=== PATIENT | female | born 1945 | race Caucasian/White ===

== ENCOUNTER → 2016-07-17 | Outpatient (CLI) | payer MEDICARE ==
[2016-07-17 12:22] LABS: Aty Lym Flag Slight; CH 31.5; CHCM 32.8; HCT 46.3 % (34.0-46.0); HDW 2.48; HGB 14.6 gm/dL (11.4-16.0); MCH 30.6 pg (25.0-35.0); MCHC 31.6 g/dL (31.0-37.0); MCV 96.6 fL (80.0-100.0); Mean Platelet Volume 7.1; RBC 4.79 m/uL (3.80-5.40); WBC 10.6 k/uL (3.8-10.6); WBC (Perox) 11.17
[2016-07-17 13:16] LABS: Add Differential Manual Differential
[2016-07-17 13:17] LABS: Manual Review Performed; Nucleated Red Blood Cells 0 /100 WBC (0-0); Total Cells Counted 100
[2016-07-17 13:18] LABS: RBC Morphology Normal
== END | disposition home or self-care (01) ==
LOC: LABPAT 11:26
PROVIDERS: ATTEND Obstetrics & Gynecology
DX: Z01.818 Encounter for other preprocedural examination (principal); I10 Essential (primary) hypertension
CPT/HCPCS: 85025; 93005

== ENCOUNTER 2016-07-25 09:00 | Day surgery (SDC) | payer MEDICARE ==
[2016-07-19 12:03] VITALS: BMI 26.2
[~2016-07-25 09:00] MED LIST: DEXAMETHASONE SOD PHOSPHATE 10 MG/ML 1 ML VIAL IV ONE; HYDROmorphone 1 MG/ML 1 ML SYRINGE IVP PRN; LACTATED RINGERS 1,000 ML IV SCH; LIDOCAINE 1% 20 ML VIAL (10MG/ML) FOR IV START INTRADERMA PRN; MIDAZOLAM 2 MG/2 ML VIAL IV PRN; ONDANSETRON 4 MG/2 ML VIAL IVP ONE; SCOPOLAMINE 1.5MG/72HR PATCH TRANSDERM ONE; ceFAZolin 2 GM in SODIUM CHLORIDE 0.9% 100 ML IVPB ONE
[2016-07-25] MEDS ORDERED: LACTATED RINGERS 1,000 ML IV ONE (09:33)
[2016-07-25] MEDS ORDERED: LIDOCAINE 1% 20 ML VIAL (10MG/ML) FOR IV START INTRADERMA ONE (09:34)
[2016-07-25 09:52] LABS: Glucose,Whole Blood 99 mg/dL (75-99)
[2016-07-25] MEDS ORDERED: PROPOFOL 10 MG/ML 20 ML VIAL IV ONE (10:21)
[2016-07-25] MEDS ORDERED: KETOROLAC 30 MG/ML 1 ML VIAL ONE (10:21)
[2016-07-25] MEDS ORDERED: fentaNYL (PF) 50 MCG/ML 2 ML AMP ONE (10:21)
[2016-07-25] MEDS ORDERED: GLYCOPYRROLATE 0.2 MG/ML 2 ML VIAL ONE (10:21)
[2016-07-25] MEDS ORDERED: LIDOCAINE 1% INJ 10MG/ML (20 ML MDV) ONE (10:21)
[2016-07-25] MEDS ORDERED: MIDAZOLAM 2 MG/2 ML VIAL ONE (10:21)
[2016-07-25 10:53] VITALS: TEMP 96.8
[2016-07-25] MEDS ORDERED: SIMETHICONE 80 MG CHEWABLE PO PRN (11:00)
[2016-07-25] MEDS ORDERED: ONDANSETRON 4 MG/2 ML VIAL IVP PRN (11:00)
[2016-07-25] MEDS ORDERED: METOCLOPRAMIDE 5 MG/ML 2 ML VIAL IVP PRN (11:00)
[2016-07-25] MEDS ORDERED: diphenhydrAMINE 50 MG/ML 1 ML VIAL IVP PRN (11:00)
[2016-07-25] MEDS ORDERED: LACTATED RINGERS 1,000 ML IV SCH (11:00)
[2016-07-25] MEDS ORDERED: Acetaminophen-Codeine 300-30mg TAB PO PRN ×2 (11:00)
--- NOTE | 2016-07-25 11:12 | P.OP ---
Date of Procedure: 07/25/16 Preoperative Diagnosis: 1. Postmenopausal bleeding #2. Cervical stenosis #3. Endometrial fluid Postoperative Diagnosis: Same Procedure(s) Performed: #1. Diagnostic hysteroscopy #2. Dilation and curettage Anesthesia: other (Gen. by face mask) Surgeon: Aly West Estimated Blood Loss (ml): 2 IV fluids (ml): 300 Urine output (ml): 20 Pathology: other (Endometrial curettings) Condition: stable Disposition: PACU Operative Findings: Preoperative pelvic examination demonstrated an atrophic slightly anteverted mobile normal shaped uterus with normal adnexa bilaterally. Intraoperatively, the uterus sounded to 5 cm. Upon initial hysteroscopy, it was unclear whether we were in the uterine cavity. As I backed the scope out towards the cervix and became apparent that expulsive track had been created in the middle of the central portion of the fundus with one of the dilators and that the in vitro cavity was entirely atrophic and benign in appearance. The bilateral tubal ostia were seen. The perforation was only partial and had no ongoing bleeding of any kind. Curettage failed to produce any significant amount of tissue as would be expected from an atrophic endometrium. There is minimal cervical descensus. Description of Procedure: The patient was prepped and draped in usual fashion after general anesthesia was administered by the anesthesiologist. A weighted speculum was placed in the bladder drained of approximately 20 mL of clear [place] urine. The anterior lip of the cervix was grasped with a single-tooth tenaculum and uterus sounded to 5 cm as noted above. Serial dilation was carried out to admit the diagnostic hysteroscope which was placed with the findings as noted above. After discovery of the midline partial perforation, the scope was backed to the cervix at which time it was very clear that the uterine cavity was benign in nature and the bilateral tubal ostia were easily seen. All instrumentation was then removed aside from the tenaculum which was utilized to provide traction for curettage with a small sharp curette and circumferential and thorough fashion onto a Telfa placed in the vagina. Minimal tissue was produced. Allis her mentation was then removed entirely and the procedure terminated. There was no significant ongoing bleeding. Estimated blood loss for the entire case was approximately 2 mL. There were no complications. All sponge, instrument, and needle counts were correct. The patient tolerated the procedure well and proceeded to the recovery room in stable condition.
[2016-07-25 12:29] VITALS: RESP 18
[2016-07-25 12:33] VITALS: BP 112/57; PULSE 57
[2016-07-25 12:37] LABS: Glucose,Whole Blood 115 mg/dL (75-99)
== END 2016-07-25 13:34 | disposition home or self-care (01) ==
LOC: OR 09:00
PROVIDERS: ATTEND Obstetrics & Gynecology
DX: N88.2 Stricture and stenosis of cervix uteri (principal); N95.0 Postmenopausal bleeding; I10 Essential (primary) hypertension; E78.5 Hyperlipidemia, unspecified; E11.9 Type 2 diabetes mellitus without complications; K21.9 Gastro-esophageal reflux disease without esophagitis; Z79.82 Long term (current) use of aspirin; Z79.899 Other long term (current) drug therapy
CPT/HCPCS: 88305; 58558; J2250; J1100; J0690; J2405; J2001; J3010; J1885; J2704

== ENCOUNTER → 2016-10-31 | Outpatient (CLI) | payer MEDICARE ==
--- NOTE | 2016-10-31 17:22 | MR ---
EXAMINATION TYPE: MR lumbar spine wo con DATE OF EXAM: 10/31/2016 4:33 PM COMPARISON: NONE HISTORY: Numbness, Right Hip, X6 WEEKS, Multiplanar, MultiSpin echo imaging of the lumbar spine was performed. L1-L2: Normal disc appearance without desiccation. No herniation, protrusion or disc bulging. No ca nal stenosis is present. Foramina are patent bilaterally. L2-L3: Mild disc desiccation is noted. Mild posterior disc bulge without evidence for herniation or p rotrusion. No canal stenosis is present. Foramina are patent bilaterally. L3-L4: Mild disc desiccation is noted. Mild posterior disc bulge without evidence for herniation or protrusion. No canal stenosis is present. Foramina are patent bilaterally. L4-L5: Mild disc desiccation is noted. Mild posterior disc bulge without evidence for herniation or protrusion. No canal stenosis is present. Foramina are patent bilaterally. L5-S1: Normal disc appearance without desiccation. No herniation, protrusion or disc bulging. No ca nal stenosis is present. Foramina are patent bilaterally. Lumbar segments are intact. No paraspinal masses are identified. Conus medullaris has a normal appe arance. IMPRESSION: 1. Mild degenerative disc disease and disc bulging is noted.
== END | disposition home or self-care (01) ==
LOC: RADMRIMAIN 15:37
PROVIDERS: ATTEND Psychiatry & Neurology Neurology
DX: M51.26 Other intervertebral disc displacement, lumbar region (principal); M51.36 Other intervertebral disc degeneration, lumbar region
CPT/HCPCS: 72148

== ENCOUNTER → 2017-03-21 | Outpatient (CLI) | payer MEDICARE ==
--- NOTE | 2017-03-23 11:02 | MM ---
Reason for exam: screening (asymptomatic). Last mammogram was performed 4 years and 2 months ago. History: Patient is postmenopausal. Family history of breast cancer in mother at age 50. Took estrogen for 10 years. Took progesterone for 10 years. Physical Findings: A clinical breast exam by your physician is recommended on an annual basis and results should be correlated with mammographic findings. MG 3D Screening Mammo W/Cad Bilateral CC and MLO view(s) were taken. Prior study comparison: March 14, 2016, mammogram, performed at [facility]. January 21, 2013, bilateral digital screening mammo w/CAD. January 16, 2012, bilateral digital screening mammo w/CAD. Masses of the upper inner quadrant and upper outer quadrant on the left are unchanged back to 01/11/11. No suspicious abnormality. No significant changes when compared with prior studies. ASSESSMENT: Benign, BI-RAD 2 RECOMMENDATION: Routine screening mammogram of both breasts in 1 year.
== END | disposition home or self-care (01) ==
LOC: RADMAMWWP 13:05
PROVIDERS: ATTEND Family Medicine
DX: Z12.31 Encounter for screening mammogram for malignant neoplasm of breast (principal)
CPT/HCPCS: 77063; G0202

== ENCOUNTER → 2018-08-20 | Outpatient (CLI) | payer MEDICARE ==
--- NOTE | 2018-08-20 17:00 | US ---
EXAMINATION TYPE: US thyroid st tissue head/neck DATE OF EXAM: 08/20/2018 COMPARISON: NONE CLINICAL HISTORY: E04.2 Nontoxic multinodular goiter. Patient states during carotid doppler at doctor s office the tech saw nodules. GLAND SIZE: Right Lobe: 5.0 x 1.3 x 2.9 cm Overall Parenchyma: homogenous Left Lobe: 4.9 x 1.8 x 2.4 cm Overall Parenchyma: heterogeneous Isthmus Thickness: 0.6 cm NODULES RIGHT: # of nodules measured on right: 0 LEFT: # of nodules measured on left: 2 1. 1.8 X 1.6 x 1.9 cm isoechoic solid nodule at the mid pole with well-defined margins. This nodul e is wider than tall and shows intranodular vascularity. Prior size: no previous 2. 1.2 X 0.9 x 1.2 cm isoechoic solid nodule at the lower pole with well-defined margins. This nodu le is wider than tall and shows intranodular vascularity. Prior size: no previous ISTHMUS: # of nodules measured in the isthmus: There is a 0.6 cm nodule within the isthmus. Bilateral neck scanned, no evidence of lymphadenopathy. IMPRESSION: 1. Left lobe thyroid nodules
== END ==
LOC: RADUSWWP 11:19
PROVIDERS: ATTEND Internal Medicine Endocrinology, Diabetes & Metabolism
DX: E04.2 Nontoxic multinodular goiter (principal)
CPT/HCPCS: 76536

== ENCOUNTER → 2018-09-13 | Outpatient (CLI) | payer MEDICARE ==
--- NOTE | 2018-09-16 10:47 | MM ---
Reason for exam: screening (asymptomatic). Last mammogram was performed 1 year and 6 months ago. History: Patient is postmenopausal. Family history of breast cancer in mother at age 50 and breast cancer in sister. Took estrogen for 10 years. Took progesterone for 10 years. Physical Findings: A clinical breast exam by your physician is recommended on an annual basis and results should be correlated with mammographic findings. MG 3D Screening Mammo W/Cad Bilateral CC and MLO view(s) were taken. Prior study comparison: March 21, 2017, bilateral MG 3d screening mammo w/cad. March 14, 2016, mammogram, performed at [facility]. The breast tissue is heterogeneously dense. This may lower the sensitivity of mammography. There is chronic nodularity bilaterally. No significant changes when compared with prior studies. ASSESSMENT: Benign, BI-RAD 2 RECOMMENDATION: Routine screening mammogram of both breasts in 1 year.
== END ==
LOC: RADMAMWWP 11:38
PROVIDERS: ATTEND Family Medicine
DX: Z12.31 Encounter for screening mammogram for malignant neoplasm of breast (principal)
CPT/HCPCS: 77063; 77067

== ENCOUNTER → 2019-12-15 | Outpatient (CLI) | payer MEDICARE ==
--- NOTE | 2019-12-15 15:48 | BD ---
EXAMINATION TYPE: Axial Bone Density DATE OF EXAM: 12/15/2019 COMPARISON: April 05, 2015 CLINICAL HISTORY: Postmenopausal female Height: 60 Weight: 154.4 FRAX RISK QUESTIONS: Alcohol (3 or more units per day): no Family History (Parent hip fracture): no Glucocorticoids (More than 3mos): no (Ex: prednisone, prednisolone, methylprednisolone, dexamethasone, and hydrocortisone). History of Fracture in Adulthood: no Secondary Osteoporosis: 1. Type 1 Diabetes: no 2. Hyperthyroidism: no 3. Menopause before 45: no 4. Malnutrition: no 5. Chronic liver disease: no Rheumatoid Arthritis: no Current Tobacco Use: no RISK FACTORS HISTORY OF: Family History of Osteoporosis: no Active: yes Diet low in dairy products/other sources of calcium: yes Postmenopausal woman: age 49 Lost more than 2 inches in height since high school: no MEDICATIONS: blood pressure, cholesterol meds, Additional History: EXAM MEASUREMENTS: Bone mineral densitometry was performed using the [employer] System. Bone mineral density as measured about the Lumbar spine is: ----- L1-L4(G/cm2): 0.957 T Score Values are as follows: ----- L2: -1.3 ----- L3: -1.4 ----- L4: -2.6 ----- L1-L4: -1.4 Bone mineral density has: increased 0.4 % since study of: 04.05.2015 Bone mineral density about the R hip (g/cm2): 0.740 Bone mineral density about the L hip (g/cm2): 0.750 T Score values are as follows: -----R Neck: -2.1 -----L Neck: -2.1 -----R Total: -1.3 -----L Total: -1.3 Bone mineral density has: decreased -0.8 % since study of: 04.05.2015 IMPRESSION: Osteopenia (T Score between -2.5 and -1) remains present. There remains slightly increased risk of fracture and the patient may be considered for treatment. Re-Screen 2-5 years. NOTE: T-SCORE=SD OF THE YOUNG ADULT MEAN.
--- NOTE | 2019-12-16 08:30 | MM ---
Reason for exam: screening (asymptomatic). Last mammogram was performed 1 year and 3 months ago. History: Patient is postmenopausal. Family history of breast cancer in mother at age 50 and breast cancer in sister. Took estrogen for 10 years. Took progesterone for 10 years. Physical Findings: A clinical breast exam by your physician is recommended on an annual basis and results should be correlated with mammographic findings. MG 3D Screening Mammo W/Cad Bilateral CC and MLO view(s) were taken. Prior study comparison: September 13, 2018, bilateral MG 3d screening mammo w/cad. March 21, 2017, bilateral MG 3d screening mammo w/cad. The breast tissue is heterogeneously dense. This may lower the sensitivity of mammography. There is chronic nodularity in the left breast. No significant changes when compared with prior studies. ASSESSMENT: Benign, BI-RAD 2 RECOMMENDATION: Routine screening mammogram of both breasts in 1 year.
== END | disposition home or self-care (01) ==
LOC: RADMAMWWP 12:38
PROVIDERS: ATTEND Family Medicine
DX: Z12.31 Encounter for screening mammogram for malignant neoplasm of breast (principal); M85.80 Other specified disorders of bone density and structure, unspecified site; Z78.0 Asymptomatic menopausal state
CPT/HCPCS: 77063; 77067; 77080

== ENCOUNTER → 2020-05-04 | Outpatient (CLI) | payer MEDICARE ==
--- NOTE | 2020-05-04 15:38 | US ---
EXAMINATION TYPE: US thyroid st tissue head/neck DATE OF EXAM: 05/04/2020 COMPARISON: NONE CLINICAL HISTORY: E04.2 MULTINODULAR GOITER. f/u, patient said Dr Barahona did biopsy of nodules in office GLAND SIZE: Right Lobe: 5.4 x 1.1 x 1.3 cm Overall Parenchyma: homogenous Left Lobe: 5.1 x 1.5 x 1.9 cm Overall Parenchyma: heterogeneous Isthmus Thickness: 0.6 cm NODULES RIGHT: # of nodules measured on right: 0 LEFT: # of nodules measured on left: 2 1. 1.9 X 1.6 x 2.0 cm solid or almost completely solid, hypoechoic nodule, which is wider than tall , with smooth margins, without echogenic foci. Prior size: 1.7 x 1.6 x 1.4 cm 2. 1.7 X 0.9 x 1.2 cm solid or almost completely solid, hypoechoic nodule, which is wider than tall , with smooth margins, without echogenic foci. Prior size: 1.5 x 0.8 x 1.3 cm ISTHMUS: # of nodules measured in the isthmus: 0 Bilateral neck scanned, no evidence of lymphadenopathy. IMPRESSION: Enlarging left lobe thyroid nodule. 2017 ACR TI-RADS LEVEL: 4 *Highest TI-RADS level nodule reported Recommendations: 1. Fine-needle aspiration of left lobe thyroid nodule
[2020-05-04 18:02] LABS: T4, Free (Free Thyroxine) 1.16 ng/dL (0.78-2.19)
== END | disposition home or self-care (01) ==
LOC: RADUSWWP 14:41
PROVIDERS: ATTEND Internal Medicine Endocrinology, Diabetes & Metabolism
DX: E04.1 Nontoxic single thyroid nodule (principal)
CPT/HCPCS: 76536; 84439; 84443

== ENCOUNTER → 2020-08-10 | Outpatient (CLI) | payer MEDICARE ==
[2020-08-10 13:24] VITALS: BP 108/69; PULSE 70; RESP 18; TEMP 98.3
--- NOTE | 2020-08-10 14:41 | P.HPOB ---
History of Present Illness H&P Date: 08/10/20 Chief Complaint: The patient is here for her routine gynecologic exam. This is a 74-year-old with an LMP of 1994. The patient is here to establish with this office. She previously saw Dr. Salgado more than 8 years ago for her gynecologic exams. The patient states she has noticed a vaginal odor without discharge during the past 2 months. She denies any postmenopausal bleeding and is otherwise without gynecologic complaints. She believes she may have had a pelvic exam 1-2 years ago in her PCPs office. Review of Systems She has gained about 10 pounds over the past year. She denies respiratory, cardiac and G.I. problems. She denies maltreatment or problems with falling. : She has had some urinary leakage despite having a sling procedure done in the past. Past Medical History Past Medical History: Cancer, CVA/TIA, Diabetes Mellitus, Deep Vein Thrombosis (DVT), GERD/Reflux, GI Bleed, Hyperlipidemia, Hypertension Additional Past Medical History / Comment(s): AORTIC ANEURYSM, BEING MONITORED. HX SKIN CA(scalp). 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 TYPE 2 DM, DIET CONTROLLED. HX LT ARM DVT. OVERACTIVE BLADDER, RX HELPS. Osteopenia. 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 History of Any Multi-Drug Resistant Organisms: None Reported Past Surgical History: Bladder Surgery Additional Past Surgical History / Comment(s): CTR LEXI. LT CAROTID ENDARTERECTOMY. Bladder sling procedure. Wrist surgery. Colonoscopy 2019. D&C 2016. Past Anesthesia/Blood Transfusion Reactions: No Reported Reaction Past Psychological History: No Psychological Hx Reported Smoking Status: Former smoker Past Alcohol Use History: None Reported Additional Past Alcohol Use History / Comment(s): Quit smoking in 2010. Past Drug Use History: None Reported Additional History: She has been since 2001 and this is her second marriage. She is retired. - Past Family History Sister(s) Family Medical History: Cancer Additional Family Medical History / Comment(s): Colon cancer. Another sister had breast cancer. Mother Brother(s) Family Medical History: Cancer Brother(s) Family Medical History: Cancer, CVA/TIA Additional Family Medical History / Comment(s): Colon cancer. Mother Family Medical History: Cancer Additional Family Medical History / Comment(s): Uterine cancer. Father Family Medical History: CVA/TIA Medications and Allergies Home Medications Medication Instructions Recorded Confirmed Type Aspirin [Adult Low Dose Aspirin EC] 81 mg PO DAILY 07/19/16 08/10/20 History Atorvastatin [Lipitor] 10 mg PO HS 07/19/16 08/10/20 History Calcium Carbonate/Vitamin D3 1 each PO DAILY 07/19/16 08/10/20 History [Caltrate 600 Plus D3 Tablet] Cholecalciferol [Vitamin D3] 5,000 unit PO DAILY 07/19/16 08/10/20 History Krill Oil 500 mg PO DAILY 07/19/16 08/10/20 History Losartan [Cozaar] 25 mg PO DAILY 07/19/16 08/10/20 History Metoprolol Tartrate 25 mg PO DAILY 07/19/16 08/10/20 History Omeprazole [PriLOSEC] 20 mg PO AC-BID 07/19/16 08/10/20 History amLODIPine BESYLATE [Norvasc] 5 mg PO DAILY 07/19/16 08/10/20 History traMADol HCL [Ultram] 50 mg PO Q8HR PRN 07/19/16 08/10/20 History Methenamine Hippurate [Hiprex] 1 gm PO DAILY 08/10/20 08/10/20 History Tolterodine ER [Detrol LA] 4 mg PO DAILY 08/10/20 08/10/20 History Allergies Allergy/AdvReac Type Severity Reaction Status Date / Time No Known Allergies Allergy Verified 08/10/20 13:07 Exam Vital Signs Temp Pulse Resp BP Pulse Ox 08/10/20 13:19 98.3 F 70 18 108/69 99 Intake and Output 08/09/20 08/10/20 08/10/20 22:59 06:59 14:59 Other: Weight 70.76 kg Height 5 foot 1/2 inch, weight 156 pounds, BMI 30.0. This is a well-developed well-nourished white female who is alert and oriented times 3 in no acute distress. HEENT: Within normal limits. NECK: Supple without mass or thyromegaly. CHEST AND LUNGS: Clear to auscultation. HEART: Regular rate and rhythm. BREASTS: Are without mass or discharge. AXILLARY EXAM: Negative for adenopathy. BACK: Negative for CVA tenderness. ABDOMEN: Soft, nontender, without palpable masses. PELVIC EXAM: Normal external genitalia with mild atrophy. Cervix and vagina appear normal is mild atrophy. There is a small amount of creamy discharge in the vagina without noticeable odor. There is no evidence of prolapse. There is no significant cystocele. There is mild urethral mobility with cough and Valsalva with no urinary leakage demonstrated. The uterus is midposition, nongravid size and nontender. There are no palpable adnexal masses or t enderness. RECTAL EXAM: Rectovaginal exam is negative for mass or tenderness and is negative for occult blood. EXTREMITIES: Nontender. IMPRESSION: 1. 74-year-old menopausal female with normal gynecologic exam. 2. History of mixed urinary incontinence somewhat improved with Detrol. She is status post bladder sling procedure years ago. 3. Vaginal odor without discharge noticed by the patient for 2 months. On exam there is a small amount of creamy discharge noted. 4. History of osteopenia her last bone density test being done on 12/15/2019. PLAN: 1. Pap smear cotest was performed. I am uncertain as to whether the patient has had adequate screening for cervical cancer and this is why I have chosen to perform Pap smear testing. 2. Self breast awareness was discussed with the patient. 3. Screening mammogram was done on 12/15/2019 and was benign. She will repeat this after 1 year and states she will get the order slip from Dr. Fernández. 4. Affirm testing vaginitis panel was obtained from the vagina. 5. She did receive her flu shot last fall and is not planning getting a Covid vaccination because she has concerns about this new vaccination. 6. The patient was advised to return in 1-2 years for her well woman examination.
--- NOTE | 2020-08-12 09:30 | P.PN ---
Progress Note - Text Progress Note Date: 08/12/20 Test results from 08/10/20 includes Affirm vaginitis panel testing which was negative for Alley, Gardnerella, and Trichomonas. The patient was notified by phone. She still is experiencing vaginal odor and does not think it is coming from her urine. Imp: possible bacterial vaginosis not from Gardnerella. Plan: Metronidazole 500mg PO BID x 7 day. She was instructed to avoid alcohol intake. She is to call if problems. The e-prescription was sent to [facility].
--- NOTE | 2020-08-24 10:47 | P.PN ---
Progress Note - Text Progress Note Date: 08/24/20 OUTPATIENT FOLLOW-UP NOTE TEST(S)/RESULTS: Test results from 08/10/2020 include negative Pap smear and negative high risk HPV testing. METHOD OF NOTIFICATION: A message with these results was left on the patient's voicemail. PATIENT COMMENTS: DIAGNOSIS: Negative Pap smear co-test. DISCUSSION: I will try to review Dr. Salgado's records to see if she had adequate cervical screening in the past. If this can be documented, we will consider discontinuing Pap smear testing. PLAN: She was advised to return in one year for her annual well woman exam.
== END | disposition home or self-care (01) ==
LOC: WWCWWP 13:04
PROVIDERS: ATTEND Obstetrics & Gynecology
DX: Z53.9 Procedure and treatment not carried out, unspecified reason (principal)

== ENCOUNTER → 2021-02-07 | Outpatient (CLI) | payer MEDICARE ==
--- NOTE | 2021-02-08 07:33 | MM ---
Reason for exam: screening (asymptomatic). Last mammogram was performed 1 year and 2 months ago. History: Patient is postmenopausal and has history of other cancer at age 71. Family history of breast cancer in 2 sisters and breast cancer in mother at age 50. Took estrogen for 10 years. Took progesterone for 10 years. Physical Findings: A clinical breast exam by your physician is recommended on an annual basis and results should be correlated with mammographic findings. MG 3D Screening Mammo W/Cad Bilateral CC and MLO view(s) were taken. XCCL view(s) were taken of the right breast. Prior study comparison: December 15, 2019, bilateral MG 3d screening mammo w/cad. September 13, 2018, bilateral MG 3d screening mammo w/cad. March 21, 2017, bilateral MG 3d screening mammo w/cad. The breast tissue is heterogeneously dense. This may lower the sensitivity of mammography. There are benign appearing round calcifications bilaterally. There is chronic nodularity in the left breast. Asymmetric breast tissue left posterior, stable. There is no discrete abnormality. ASSESSMENT: Benign, BI-RAD 2 RECOMMENDATION: Routine screening mammogram of both breasts in 1 year.
== END | disposition home or self-care (01) ==
LOC: RADMAMWWP 10:44
PROVIDERS: ATTEND Family Medicine
DX: Z12.31 Encounter for screening mammogram for malignant neoplasm of breast (principal); Z80.3 Family history of malignant neoplasm of breast
CPT/HCPCS: 77063; 77067

== ENCOUNTER → 2021-02-22 | Outpatient (CLI) | payer MEDICARE ==
[2021-02-23 05:36] LABS: T4, Free (Free Thyroxine) 1.12 ng/dL (0.800-1.800)
== END | disposition home or self-care (01) ==
LOC: LABWHC1 12:59
PROVIDERS: ATTEND Internal Medicine Endocrinology, Diabetes & Metabolism
DX: E04.2 Nontoxic multinodular goiter (principal)
CPT/HCPCS: 36415; 84439; 84443

== ENCOUNTER → 2021-09-08 | Outpatient (CLI) | payer MEDICARE ==
[2021-09-08 23:22] LABS: T4, Free (Free Thyroxine) 1.17 ng/dL (0.800-1.800)
--- NOTE | 2021-09-09 07:12 | US ---
EXAMINATION TYPE: US thyroid st tissue head/neck DATE OF EXAM: 09/08/2021 COMPARISON: 05/04/2020 CLINICAL HISTORY: E04.2 NONTOXIC MULTINODULAR GOITER. thyroid nodules left lobe GLAND SIZE: Right Lobe: 4.9 x 1.9 x 1.5 cm Overall Parenchyma: homogenous Left Lobe: 5.4 x 2.3 x 2.0 cm Overall Parenchyma: heterogeneous Isthmus Thickness: 0.4 cm NODULES RIGHT: # of nodules measured on right: 0 LEFT: # of nodules measured on left: 2 1. 2.0 X 1.4 x 1.8 cm, mid , solid or almost completely solid, hypoechoic nodule, which is wider th an tall, with smooth margins, without echogenic foci. Prior size: 1.9 x 1.6 x 2.0 cm 2. 1.7 X 1.1 x 1.7 cm, lower , solid or almost completely solid, hypoechoic nodule, which is wider than tall, with ill-defined margins, without echogenic foci. Prior size: 1.7 x 0.9 x 1.2 cm ISTHMUS: # of nodules measured in the isthmus: 0 Bilateral neck scanned, no evidence of lymphadenopathy. IMPRESSION: Stable nonspecific nodularity glandular heterogeneity.
== END | disposition home or self-care (01) ==
LOC: RADUSWWP 15:55
PROVIDERS: ATTEND Internal Medicine Endocrinology, Diabetes & Metabolism
DX: E04.2 Nontoxic multinodular goiter (principal)
CPT/HCPCS: 76536; 84439; 84443

== ENCOUNTER → 2022-02-10 | Outpatient (CLI) | payer MEDICARE ==
[2022-02-10 18:38] LABS: African American GFR (CKD) 71.5 (60.0-200.0); Albumin 3.9 g/dL (3.8-4.9); Albumin/Globulin Ratio 1.77 (1.60-3.17); Anion Gap 8.4 mmol/L (10.00-18.00); BUN/Creat Ratio 14.33 Ratio (12.00-20.00); Blood Urea Nitrogen 12.9 mg/dL (9.0-27.0); Calcium 8.8 mg/dL (8.7-10.3); Carbon Dioxide 34.6 mmol/L (20.0-27.5); Globulin 2.2 g/dL (1.6-3.3); Non-African American GFR(CKD) 61.7 (60.0-200.0); Potassium 4.9 mmol/L (3.5-5.5); Total Bilirubin 0.2 mg/dL (0.30-1.20); Total Protein 6.1 g/dL (6.2-8.2)
== END | disposition home or self-care (01) ==
LOC: LABWHC1 12:02
PROVIDERS: ATTEND Family Medicine
DX: R60.0 Localized edema (principal)
CPT/HCPCS: 36415; 80053

== ENCOUNTER → 2022-02-14 | Outpatient (CLI) | payer MEDICARE ==
[2022-02-14 13:48] VITALS: BP 127/75; RESP 17; TEMP 98.5
--- NOTE | 2022-02-14 14:47 | P.HPOB ---
History of Present Illness H&P Date: 02/14/22 Chief Complaint: The patient is here for her routine gynecologic exam and ma mmogram. This is a 76-year-old with an LMP of 1994. The patient is without gynecologic complaints. Review of Systems The patient has lost 9 pounds over the last year. She denies respiratory, cardiac, or G.I. problems. Past Medical History Past Medical History: Cancer, CVA/TIA, Diabetes Mellitus, Deep Vein Thrombosis (DVT), GERD/Reflux, GI Bleed, Hyperlipidemia, Hypertension Additional Past Medical History / Comment(s): AORTIC ANEURYSM, BEING MONITORED. HX SKIN CA(scalp). 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 TYPE 2 DM, DIET CONTROLLED. HX LT ARM DVT. OVERACTIVE BLADDER. Carotid stenosis. Osteopenia. 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 History of Any Multi-Drug Resistant Organisms: None Reported Past Surgical History: Bladder Surgery Additional Past Surgical History / Comment(s): CTR LEXI. LT CAROTID ENDARTERECTOMY. Bladder sling procedure. Wrist surgery. Colonoscopy 2019. D&C 2016. Past Anesthesia/Blood Transfusion Reactions: No Reported Reaction Past Psychological History: No Psychological Hx Reported Smoking Status: Former smoker Past Alcohol Use History: None Reported Additional Past Alcohol Use History / Comment(s): Quit smoking in 2010. Past Drug Use History: None Reported Additional Drug Use History / Comment(s): Has used CBD oil. Additional History: She has been since 2001 and this is her second marriage. She is retired. - Past Family History Sister(s) Family Medical History: Cancer Additional Family Medical History / Comment(s): Colon cancer. Another sister had breast cancer. Mother Brother(s) Family Medical History: Cancer Brother(s) Family Medical History: Cancer, CVA/TIA Additional Family Medical History / Comment(s): Colon cancer. Mother Family Medical History: Cancer Additional Family Medical History / Comment(s): Uterine cancer. Father Family Medical History: CVA/TIA Medications and Allergies Home Medications Medication Instructions Recorded Confirmed Type Aspirin [Adult Low Dose Aspirin EC] 81 mg PO DAILY 07/19/16 02/14/22 History Atorvastatin [Lipitor] 20 mg PO HS 07/19/16 02/14/22 History Calcium Carbonate/Vitamin D3 1 each PO DAILY 07/19/16 02/14/22 History [Caltrate 600 Plus D3 Tablet] Cholecalciferol [Vitamin D3] 5,000 unit PO DAILY 07/19/16 02/14/22 History Metoprolol Tartrate 25 mg PO DAILY 07/19/16 02/14/22 History Omeprazole [PriLOSEC] 20 mg PO AC-BID 07/19/16 02/14/22 History traMADol HCL [Ultram] 50 mg PO Q8HR PRN 07/19/16 02/14/22 History Tolterodine ER [Detrol LA] 4 mg PO DAILY 08/10/20 02/14/22 History metroNIDAZOLE [Flagyl] 500 mg PO BID 7 Days #14 tab 08/12/20 02/14/22 Rx Clopidogrel [Plavix] 75 mg PO DAILY 02/14/22 02/14/22 History Flunisolide Nasal [place] [Nasalide] 1 spray NASAL DAILY PRN 02/14/22 02/14/22 History Furosemide [Lasix] 25 mg PO HS 02/14/22 02/14/22 History Gabapentin [Neurontin] 100 mg PO BID 02/14/22 02/14/22 History Losartan [Cozaar] 25 mg PO DAILY 02/14/22 02/14/22 History metFORMIN HCL ER [Glucophage XR] 500 mg PO DAILY 02/14/22 02/14/22 History Allergies Allergy/AdvReac Type Severity Reaction Status Date / Time No Known Allergies Allergy Verified 02/14/22 13:36 Exam Vital Signs Temp Resp BP Pulse Ox 02/14/22 13:45 98.5 F 17 127/75 98 Intake and Output 02/13/22 02/14/22 02/14/22 22:59 06:59 14:59 Other: Weight 66.678 kg Height 5 feet 0 inches, weight 147 pounds, BMI 28.7. This is a well-developed well-nourished female who is alert and oriented times 3 in no acute distress. HEENT: Within normal limits. NECK: Supple without mass or thyromegaly. CHEST AND LUNGS: There is mild bilateral scattered rhonchi with expiration. HEART: Regular rate and rhythm. BREASTS: Are without mass or discharge. AXILLARY EXAM: Negative for adenopathy. BACK: Negative for CVA tenderness. ABDOMEN: Soft, nontender, without palpable masses. PELVIC EXAM: Normal external genitalia with mild atrophy. Cervix and vagina appear normal is mild atrophy. There is no unusual discharge. There is no evidence of prolapse. The uterus is midposition, nongravid size and nontender. There are no palpable adnexal masses or tenderness. RECTAL EXAM: Rectovaginal exam is negative for mass or tenderness and is negative for occult blood. EXTREMITIES: Nontender. IMPRESSION: 1. 76-year-old menopausal female with normal gynecologic exam. 2. History of osteopenia. PLAN: 1. Pap smears have been discontinued. 2. Self breast awareness was discussed with the patient. We have also discussed symptoms associated with inflammatory breast cancer. 3. Screening mammogram will be done today. 4. Osteoporosis prevention was discussed. Bone density testing will be done today. 5. She has completed her Covid vaccination series but has not received a booster. She is aware that boosters are available. 6. The patient was advised to return in 1-2 years for her well woman examination.
--- NOTE | 2022-02-14 15:35 | XR ---
EXAMINATION TYPE: AP view pelvis and 2 views left hip DATE OF EXAM: 02/14/2022 Comparison: None Clinical History: 76-year-old female M25.552 Pain left hip Findings: SI joints appear symmetric and intact as does the pubic symphysis. There is mild to moderate superola teral joint space narrowing at the left greater than right hips. No acute fracture, subluxation, or d islocation is seen. Impression: Mild left greater than right hip OA characterized primarily by superolateral joint space narrowing.
--- NOTE | 2022-02-14 15:36 | BD ---
EXAMINATION TYPE: Axial Bone Density DATE OF EXAM: 02/14/2022 COMPARISON: 2014 CLINICAL HISTORY: 76 years year old Female. ICD-10 CODE: Z78.0 Post menopausal without HRT Height: 4'10 Weight: 146 FRAX RISK QUESTIONS: Secondary Osteoporosis: RISK FACTORS HISTORY OF: Postmenopausal woman: y MEDICATIONS: Additional Medications: statin,cholecalciferol,clopidogrel,furosemide,fluticasone gabapentin,losartan,metforim,omeprazole,potassium,tolterodine Additional History: EXAM MEASUREMENTS: Bone mineral densitometry was performed using the [employer] System. Bone mineral density as measured about the Lumbar spine is: ----- L1-L4(G/cm2): 0.969 T Score Values are as follows: ----- L1: -1.5 ----- L2: -1.4 ----- L3: -1.5 ----- L4: -2.6 ----- L1-L4: Bone mineral density has: Decreased -0.3% since study of: 04/05/2015 Bone mineral density about the R hip (g/cm2): 0.700 Bone mineral density about the L hip (g/cm2):0.744 T Score values are as follows: -----R Neck: -2.4 -----L Neck: -2.1 -----R Total: -1.5 -----L Total: -1.5 Bone mineral density has: Decreased -2.9% since study of: 04/05/2015 FRAX%s: The graph provided illustrates a 16.9% chance for a major osteoporotic fx and a 5.4% chance f or the hips probability for fx in 10 years time. IMPRESSION: Osteopenia (T Score between -2.5 and -1). There is slightly increased risk of fracture and the patient may be considered for treatment. Re-Screen 2-5 years. NOTE: T-SCORE=SD OF THE YOUNG ADULT MEAN.
--- NOTE | 2022-02-15 20:18 | MM ---
Reason for Exam: Screening (asymptomatic). Last screening mammogram was performed 12 month(s) ago. Patient History: Menarche at age 12. First Full-Term at age 18. Postmenopausal. Other cancer, age 71. Patient used Estrogen for 10 years. Patient used Progesterone for 10 years. Sister had breast cancer. Sister had breast cancer. Mother had breast cancer, age 50. Risk Values: Nikia 5 year model risk: 8.2%. NCI Lifetime model risk: 15.1%. Prior Study Comparison: 09/13/2018 Bilateral Screening Mammogram, [facility]. 12/15/2019 Bilateral Screening Mammogram, [facility]. 02/07/2021 Bilateral Screening Mammogram, [facility]. Tissue Density: The breast tissue is heterogeneously dense. This may lower the sensitivity of mammography. Findings: Analyzed By CAD. Small group of microcalcifications outer left cc view middle depth appear to be new, not well localized on the MLO view. Further magnification views recommended. The more laterally positioned loosely grouped/regional microcalcifications remains unchanged. Overall Assessment: Incomplete: need additional imaging evaluation, BI-RAD 0 Management: Special View Mammogram of the left breast. To further assess the central outer left breast microcalcifications optimally seen on the CC view. [facility] will attempt to contact patient to return for supplemental views and ultrasound if indicated. Electronically signed and approved by: Lv Gilliam M.D. Radiologist
--- NOTE | 2022-02-16 11:01 | P.PN ---
Progress Note - Text Progress Note Date: 02/16/22 OUTPATIENT FOLLOW-UP NOTE TEST(S)/RESULTS: Test results from 02/14/2022 include a mammogram which requires a left breast workup due to calcifications. Also the bone density test shows osteopenia with slight decrease from her previous bone density test. METHOD OF NOTIFICATION: The patient was notified by phone. PATIENT COMMENTS: DIAGNOSIS: Incomplete screening mammogram requiring left breast workup. Osteopenia. DISCUSSION: I have stressed the importance of adequate calcium, vitamin D, and regular exercise. We will plan on repeating bone density testing in 2 years. I will have the radiology Department call the patient to make a left breast workup appointment. PLAN: As above.
== END ==
LOC: WWCWWP 12:54
PROVIDERS: ATTEND Obstetrics & Gynecology
DX: Z01.419 Encounter for gynecological examination (general) (routine) without abnormal findings (principal); Z12.31 Encounter for screening mammogram for malignant neoplasm of breast; M16.12 Unilateral primary osteoarthritis, left hip; Z78.0 Asymptomatic menopausal state; E66.9 Obesity, unspecified; Z68.28 Body mass index [BMI] 28.0-28.9, adult
CPT/HCPCS: 73502; 77063; 77067; 77080

== ENCOUNTER → 2022-02-22 | Outpatient (CLI) | payer MEDICARE ==
--- NOTE | 2022-02-22 14:55 | MM ---
Reason for Exam: Additional evaluation requested from abnormal screening. Last screening mammogram was performed less than 1 month ago. Patient History: Menarche at age 12. First Full-Term at age 18. Postmenopausal. Other cancer, age 71. Patient used Estrogen for 10 years. Patient used Progesterone for 10 years. Sister had breast cancer, age 46. Sister had breast cancer, age 45. Mother had breast cancer, age 50. Risk Values: Nikia 5 year model risk: 8.2%. NCI Lifetime model risk: 15.1%. Prior Study Comparison: 12/15/2019 Bilateral Screening Mammogram, [facility]. 02/07/2021 Bilateral Screening Mammogram, [facility]. 02/14/2022 Bilateral MG 3D screening mammo w/cad, [facility]. Tissue Density: Left: The breast tissue is heterogeneously dense. This may lower the sensitivity of mammography. Findings: Analyzed By CAD. Grouped fine pleomorphic calcifications in the left outer breast middle depth best appreciated on the CC view. Overall Assessment: Suspicious, BI-RAD 4 Management: Stereotactic Core Biopsy of the left breast. A clinical breast exam by your physician is recommended on an annual basis and results should be correlated with mammographic findings. This exam should not preclude additional follow-up of suspicious palpable abnormalities. Results were given to the patient verbally at the time of exam. Electronically signed and approved by: Blue Sage D.O.
--- NOTE | 2022-02-22 14:55 | MM ---
Reason for Exam: Additional evaluation requested from abnormal screening. Last screening mammogram was performed less than 1 month ago. Patient History: Menarche at age 12. First Full-Term at age 18. Postmenopausal. Other cancer, age 71. Patient used Estrogen for 10 years. Patient used Progesterone for 10 years. Sister had breast cancer, age 46. Sister had breast cancer, age 45. Mother had breast cancer, age 50. Risk Values: Nikia 5 year model risk: 8.2%. NCI Lifetime model risk: 15.1%. Prior Study Comparison: 12/15/2019 Bilateral Screening Mammogram, [facility]. 02/07/2021 Bilateral Screening Mammogram, [facility]. 02/14/2022 Bilateral MG 3D screening mammo w/cad, [facility]. Tissue Density: Left: The breast tissue is heterogeneously dense. This may lower the sensitivity of mammography. Findings: Analyzed By CAD. Grouped fine pleomorphic calcifications in the left outer breast middle depth best appreciated on the CC view. Overall Assessment: Suspicious, BI-RAD 4 Management: Stereotactic Core Biopsy of the left breast. A clinical breast exam by your physician is recommended on an annual basis and results should be correlated with mammographic findings. This exam should not preclude additional follow-up of suspicious palpable abnormalities. Results were given to the patient verbally at the time of exam. Electronically signed and approved by: Blue Sage D.O.
== END | disposition home or self-care (01) ==
LOC: RADMAMWWP 13:29
PROVIDERS: ATTEND Obstetrics & Gynecology
DX: R92.8 Other abnormal and inconclusive findings on diagnostic imaging of breast (principal); Z78.0 Asymptomatic menopausal state; Z80.3 Family history of malignant neoplasm of breast
CPT/HCPCS: 77065; G0279; 77061

== ENCOUNTER → 2022-03-22 | Outpatient (CLI) | payer MEDICARE ==
[2022-03-22 13:29] VITALS: BP 100/63; PULSE 68; RESP 16; TEMP 97.4
--- NOTE | 2022-03-22 14:13 | P.GSHP ---
History of Present Illness H&P Date: 03/22/22 Chief Complaint: microcalcification of concern left breast Edwina is a 76 year old female seen in [facility] for Dr. Shah regarding microcytic calcifications of concern in her left breast. A routine mammogram was performed on [id number] which led to a left breast diagnostic mammogram. Microcalcifications of concern in the left upper outer breast were identified. Stereotactic core biopsy was recommended. The patient has not had any recent trauma or infection in her breast. She is not complaining of any skin changes, nipple discharge, lumps or masses in her breasts. She has not had any surgery on her breast. Nikia Risk: 5 year: 8.2% lifetime risk: 15.1% Nicotine: stopped about 10 years ago after a stroke, used to smoke < 1 PPD for 20 years alcohol: stopped as brother was an alcoholic; stopped 20 years ago BCP: used BCP for 10 years stopped in her 20's; hormones used them at menopause stopped 10 years ago Caffiene: pot of coffee/day, pepsi 1 can daily chocolate: occasional Family History: mother: uterine cancer, breast cancer brother: colon cancer sister: colon cancer/ spread to lungs sister: breast cancer Hormonal History: menarche: 11 breast fed: no, age at first : 19 menopause: 49 hormones: used hormones for about 20 years Surgical History: tubal ligation bladder sling carpel tunnel vascular surgery neck blockage Medical History: CVA 10 years ago; speach affected high cholesterol HTN diabetic Social History: nicotine: < 1 PPD for 20 years, stopped 10 years ago alcohol: stopped as brother was an alcoholic; stopped 20 years ago drugs: none - Constitutional Constitutional: Denies chills, Denies fever - EENT Eyes: denies blurred vision, denies pain Ears: bilateral: tinnitus Ears, nose, mouth and throat: Denies headache, Denies sore throat - Breasts Breasts: bilateral: as per HPI - Cardiovascular Cardiovascular: Denies chest pain, Denies shortness of breath - Respiratory Respiratory: Denies cough, Denies 7 - Gastrointestinal Gastrointestinal: Denies abdominal pain, Denies diarrhea, Denies nausea, Denies vomiting - Genitourinary (Female) Comment: UTI in past Genitourinary: Denies dysuria, Denies hematuria - Menstruation Menstruation: Reports postmenopausal - Musculoskeletal Comment: back pain - Integumentary Integumentary: Denies pruritus, Denies rash - Neurological Neurological: Reports as per HPI - Psychiatric Psychiatric: Denies anxiety, Denies depression - Endocrine Comment: type 2 diabetes Endocrine: Denies fatigue, Denies weight change - Hematologic/Lymphatic Comment: aspirin, plavix - Allergic/Immunologic Allergic/Immunologic: Reports as per HPI Past Medical History Past Medical History: Cancer, CVA/TIA, Diabetes Mellitus, Deep Vein Thrombosis (DVT), GERD/Reflux, GI Bleed, Hyperlipidemia, Hypertension Additional Past Medical History / Comment(s): AORTIC ANEURYSM, BEING MONITORED. HX SKIN CA(scalp). 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 TYPE 2 DM, DIET CONTROLLED. HX LT ARM DVT. OVERACTIVE BLADDER. Carotid stenosis. Osteopenia. 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 History of Any Multi-Drug Resistant Organisms: None Reported Past Surgical History: Bladder Surgery Additional Past Surgical History / Comment(s): CTR LEXI. LT CAROTID ENDAR TERECTOMY. Bladder sling procedure. Wrist surgery. Colonoscopy 2019. D&C 2016. Past Anesthesia/Blood Transfusion Reactions: No Reported Reaction Past Psychological History: No Psychological Hx Reported Smoking Status: Former smoker Past Alcohol Use History: None Reported Additional Past Alcohol Use History / Comment(s): Quit smoking in 2010. Past Drug Use History: None Reported Additional Drug Use History / Comment(s): Has used CBD oil. - Past Family History Sister(s) Family Medical History: Cancer Additional Family Medical History / Comment(s): Colon cancer. Another sister had breast cancer. Mother Brother(s) Family Medical History: Cancer Brother(s) Family Medical History: Cancer, CVA/TIA Additional Family Medical History / Comment(s): Colon cancer. Mother Family Medical History: Cancer Additional Family Medical History / Comment(s): Uterine cancer. Father Family Medical History: CVA/TIA Medications and Allergies Home Medications Medication Instructions Recorded Confirmed Type Aspirin [Adult Low Dose Aspirin EC] 81 mg PO DAILY 07/19/16 03/22/22 History Atorvastatin [Lipitor] 20 mg PO HS 07/19/16 03/22/22 History Calcium Carbonate/Vitamin D3 1 each PO DAILY 07/19/16 03/22/22 History [Caltrate 600 Plus D3 Tablet] Cholecalciferol [Vitamin D3] 5,000 unit PO DAILY 07/19/16 03/22/22 History Metoprolol Tartrate 25 mg PO DAILY 07/19/16 03/22/22 History Omeprazole [PriLOSEC] 20 mg PO AC-BID 07/19/16 03/22/22 History traMADol HCL [Ultram] 50 mg PO Q8HR PRN 07/19/16 03/22/22 History Tolterodine ER [Detrol LA] 4 mg PO DAILY 08/10/20 03/22/22 History metroNIDAZOLE [Flagyl] 500 mg PO BID 7 Days #14 tab 08/12/20 03/22/22 Rx Clopidogrel [Plavix] 75 mg PO DAILY 02/14/22 03/22/22 History Flunisolide Nasal [place] [Nasalide] 1 spray NASAL DAILY PRN 02/14/22 03/22/22 History Furosemide [Lasix] 25 mg PO HS 02/14/22 03/22/22 History Gabapentin [Neurontin] 100 mg PO BID 02/14/22 03/22/22 History Losartan [Cozaar] 25 mg PO DAILY 02/14/22 03/22/22 History metFORMIN HCL ER [Glucophage XR] 500 mg PO DAILY 02/14/22 03/22/22 History Allergies Allergy/AdvReac Type Severity Reaction Status Date / Time No Known Allergies Allergy Verified 03/22/22 13:21 Surgical - Exam Vital Signs Temp Pulse Resp BP Pulse Ox 97.4 F L 68 16 100/63 94 L 03/22/22 13:23 03/22/22 13:23 03/22/22 13:23 03/22/22 13:23 03/22/22 13:23 BMI: 29.5 - General no distress - Eyes normal ocular movement - Neck trachea midline - Respiratory normal respiratory effort, clear to auscultation - Cardiovascular Rhythm: regular Heart Sounds: normal: S1, S2 - Abdomen Abdomen: soft, non tender, no guarding, no rigid, no rebound - Integumentary normal turgor - Neurologic no disoriented, no combative - Musculoskeletal normal gait - Psychiatric oriented to time, oriented to person, oriented to place, speech is normal, memory intact Breast Exam: BRA: 36B Inspection: Bilateral grade 3 ptosis Palpation: Right breast: Multiple positional exam fibrocystic changes no dominant masses or nodules of concern Right axilla: No adenopathy of concern Left breast: Multiple positional exam fibrocystic changes no dominant masses or nodules of concern Left axilla: No adenopathy of concern Results Mammogram reviewed in person with Dr. Shaikh Assessment and Plan Assessment: Impression: CVA 10 years ago; speach affected high cholesterol HTN diabetic Microcalcifications of concern left breast lateral mid position and the breast Plan: Patient is stop aspirin and Plavix as per primary care doctor or cardiology Stereotactic core biopsy left breast Patient's Nikia risk model shows a five-year risk of 8.2%. I discussed this with her and further recommendation will be determined after the stereotactic core biopsy Skin benefits of the procedure discussed with the patient. Risks include but are not limited to bleeding, infection, reaction to the anesthetic. The patient is presently on aspirin and Plavix and which of these can be stopped and for the duration will be determined by her primary care doctor. His of the findings are discordant and surgery may be required for biopsy. Cc: Dr. Fernández, Dr. Shah
== END | disposition home or self-care (01) ==
LOC: WWCWWP 12:34
PROVIDERS: ATTEND Surgery
DX: Z53.9 Procedure and treatment not carried out, unspecified reason (principal)

== ENCOUNTER 2022-04-12 07:15 | Day surgery (SDC) | payer MEDICARE ==
--- NOTE | 2022-04-12 04:19 | P.GSHP ---
History of Present Illness H&P Date: 04/12/22 CHIEF COMPLAINT: Colon screen HISTORY OF PRESENT ILLNESS: The patient is a 76-year-old female who presents for colon screen. Lower endoscopy was offered for further evaluation and management. PAST MEDICAL HISTORY: Please see list. PAST SURGICAL HISTORY: Please see list. MEDICATIONS: Please see list. ALLERGIES: Please see list. SOCIAL HISTORY: No illicit drug use FAMILY HISTORY: No reports of Crohn disease or ulcerative colitis. REVIEW OF ORGAN SYSTEMS: CONSTITUTIONAL: No reports of fevers or chills. PHYSICAL EXAM: VITAL SIGNS: Stable GENERAL: Well-developed pleasant in no acute distress. HEENT: No scleral icterus. Extraocular movements grossly intact. Moist buccal mucosa. NECK: Supple without lymphadenopathy. CHEST: Unlabored respirations. Equal bilateral excursions. CARDIOVASCULAR: Regular rate and rhythm. Distal 2+ pulses. ABDOMEN: Soft, nontender, nondistended. MUSCULOSKELETAL: No clubbing, cyanosis, or edema. ASSESSMENT: 1. Colon screen. PLAN: 1. Recommend proceeding with a lower endoscopy Past Medical History Past Medical History: Cancer, CVA/TIA, Diabetes Mellitus, Deep Vein Thrombosis (DVT), GERD/Reflux, GI Bleed, Hyperlipidemia, Hypertension Additional Past Medical History / Comment(s): AORTIC ANEURYSM, BEING MONITORED. HX SKIN CA(scalp). 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 TYPE 2 DM, DIET CONTROLLED. HX LT ARM DVT. OVERACTIVE BLADDER, RX HELPS. Osteopenia. 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 History of Any Multi-Drug Resistant Organisms: None Reported Past Surgical History: Bladder Surgery Additional Past Surgical History / Comment(s): CTR LEXI. LT CAROTID ENDARTERECTOMY. Bladder sling procedure. Wrist surgery. Colonoscopy 2019. D&C 2016. Past Anesthesia/Blood Transfusion Reactions: No Reported Reaction Past Psychological History: No Psychological Hx Reported Smoking Status: Former smoker Past Alcohol Use History: None Reported Additional Past Alcohol Use History / Comment(s): Quit smoking in 2010. Past Drug Use History: None Reported - Past Family History Sister(s) Family Medical History: Cancer Additional Family Medical History / Comment(s): Colon cancer. Another sister had breast cancer. Mother Brother(s) Family Medical History: Cancer Brother(s) Family Medical History: Cancer, CVA/TIA Additional Family Medical History / Comment(s): Colon cancer. Mother Family Medical History: Cancer Additional Family Medical History / Comment(s): Uterine cancer. Father Family Medical History: CVA/TIA Medications and Allergies Home Medications Medication Instructions Recorded Confirmed Type Aspirin [Adult Low Dose Aspirin EC] 81 mg PO DAILY 07/19/16 04/10/22 History Atorvastatin [Lipitor] 20 mg PO HS 07/19/16 04/10/22 History Calcium Carbonate/Vitamin D3 1 each PO DAILY 07/19/16 04/10/22 History [Caltrate 600 Plus D3 Tablet] Cholecalciferol [Vitamin D3] 5,000 unit PO DAILY 07/19/16 04/10/22 History Metoprolol Tartrate 25 mg PO DAILY 07/19/16 04/10/22 History Omeprazole [PriLOSEC] 20 mg PO AC-BID 07/19/16 04/10/22 History traMADol HCL [Ultram] 50 mg PO Q8HR PRN 07/19/16 04/10/22 History Tolterodine ER [Detrol LA] 4 mg PO DAILY 08/10/20 04/10/22 History Clopidogrel [Plavix] 75 mg PO DAILY 02/14/22 04/10/22 History Flunisolide Nasal [place] [Nasalide] 1 spray NASAL DAILY PRN 02/14/22 04/10/22 History Furosemide [Lasix] 25 mg PO HS 02/14/22 04/10/22 History Gabapentin [Neurontin] 100 mg PO BID 02/14/22 04/10/22 History Losartan [Cozaar] 25 mg PO DAILY 02/14/22 04/10/22 History metFORMIN HCL ER [Glucophage XR] 500 mg PO DAILY 02/14/22 04/10/22 History Allergies Allergy/AdvReac Type Severity Reaction Status Date / Time No Known Allergies Allergy Verified 04/10/22 12:49
[~2022-04-12 07:15] MED LIST changes: -DEXAMETHASONE SOD PHOSPHATE 10 MG/ML 1 ML VIAL IV ONE; -HYDROmorphone 1 MG/ML 1 ML SYRINGE IVP PRN; -LIDOCAINE 1% 20 ML VIAL (10MG/ML) FOR IV START INTRADERMA PRN; -MIDAZOLAM 2 MG/2 ML VIAL IV PRN; -ONDANSETRON 4 MG/2 ML VIAL IVP ONE; -SCOPOLAMINE 1.5MG/72HR PATCH TRANSDERM ONE; -ceFAZolin 2 GM in SODIUM CHLORIDE 0.9% 100 ML IVPB ONE
[2022-04-12 07:51] VITALS: TEMP 97.8
[2022-04-12] MEDS ORDERED: LACTATED RINGERS 1,000 ML IV ONE (08:00)
[2022-04-12] MEDS ORDERED: PROPOFOL 10 MG/ML 20 ML VIAL IV ONE (08:00)
[2022-04-12 08:12] LABS: Glucose,Whole Blood 136 mg/dL (70-110)
[2022-04-12 08:54] VITALS: BP 101/63; PULSE 78; RESP 15
--- NOTE | 2022-04-12 09:08 | P.PCN ---
Date of Procedure: 04/12/22 Description of Procedure: PREOPERATIVE DIAGNOSIS: Personal history of colon polyps Family history malignant colon cancer Colonoscopy screening POSTOPERATIVE DIAGNOSIS: Tubular adenoma rectum, multiple Ascending colon diverticulosis Sigmoid diverticulosis, rare Internal hemorrhoids, grade 2 OPERATION: Colonoscopy to the ileocecal valve and appendiceal orifice, cecum Colonoscopy with cold forceps biopsy SURGEON: Gala Polk MD. ANESTHESIA: MAC. INDICATIONS: The patient is an 76-year-old male who presents family history of malignant colon polyps and personal history of colon polyps. Last colonoscopy less than 5 years. Benefits and risks were described and informed consent was obtained. DESCRIPTION OF PROCEDURE: The patient had undergone MiraLAX prep. The patient had been brought into the operating room and laid in the left lateral decubitus position. After adequate intravenous sedation, the rectum was examined with 2% lidocaine jelly. External hemorrhoids were encountered. The rectal tone was within normal limits. No lesions were palpated in the rectal vault. An Olympus colonoscope was advanced until the cecum, ileocecal valve and appendiceal orifice were clearly viewed. The prep was excellent. Ascending colon and few sigmoid diverticulosis was encountered. Colonic polyps were found and removed. No evidence of focal colitis was found. Retroflexion of the scope demonstrated grade 2 internal hemorrhoids without active bleeding or inflammation. The colon was desufflated. The patient had tolerated the procedure well. Withdrawal time was over 6 minutes. FINDINGS: Aronchick preparation quality scale 1 (1-5) Internal hemorrhoids, grade 2 External hemorrhoids, grade 3. No arteriovenous malformations. Sigmoid diverticulosis, few Ascending colon diverticulosis, moderate Removal of 5 polyps: - Cold forceps biopsy at 10 cm from the anal verge 5, 3-6 mm polyp with adenoma No focal colitis. RECOMMENDATIONS: Given severity of tubular adenomas, recommend repeat colonoscopy 2 years, 2023 Plan - Discharge Summary Discharge Rx Participant: No New Discharge Prescriptions: Continue traMADol HCL [Ultram] 50 mg PO Q8HR PRN PRN Reason: Pain Cholecalciferol [Vitamin D3 (25 Mcg = 1000 Iu)] 5,000 unit PO DAILY Calcium Carbonate/Vitamin D3 [Caltrate 600 Plus D3 20 Mcg (800 Iu)] 1 each PO DAILY Atorvastatin [Lipitor] 20 mg PO HS Aspirin [Adult Low Dose Aspirin EC] 81 mg PO DAILY Omeprazole [PriLOSEC] 20 mg PO AC-BID Metoprolol Tartrate 25 mg PO DAILY Tolterodine ER [Detrol LA] 4 mg PO DAILY Losartan [Cozaar] 25 mg PO DAILY Gabapentin [Neurontin] 100 mg PO BID Furosemide [Lasix] 25 mg PO HS Flunisolide Nasal [place] [Nasalide] 1 spray NASAL DAILY PRN PRN Reason: Allergy Symptoms Clopidogrel [Plavix] 75 mg PO DAILY metFORMIN HCL ER [Glucophage XR] 500 mg PO DAILY Discharge Medication List Aspirin [Adult Low Dose Aspirin EC] 81 mg PO DAILY 07/19/16 [History] Atorvastatin [Lipitor] 20 mg PO HS 07/19/16 [History] Calcium Carbonate/Vitamin D3 [Caltrate 600 Plus D3 20 Mcg (800 Iu)] 1 each PO DAILY 07/19/16 [History] Cholecalciferol [Vitamin D3 (25 Mcg = 1000 Iu)] 5,000 unit PO DAILY 07/19/16 [History] Metoprolol Tartrate 25 mg PO DAILY 07/19/16 [History] Omeprazole [PriLOSEC] 20 mg PO AC-BID 07/19/16 [History] traMADol HCL [Ultram] 50 mg PO Q8HR PRN 07/19/16 [History] Tolterodine ER [Detrol LA] 4 mg PO DAILY 08/10/20 [History] Clopidogrel [Plavix] 75 mg PO DAILY 02/14/22 [History] Flunisolide Nasal [place] [Nasalide] 1 spray NASAL DAILY PRN 02/14/22 [History] Furosemide [Lasix] 25 mg PO HS 02/14/22 [History] Gabapentin [Neurontin] 100 mg PO BID 02/14/22 [History] Losartan [Cozaar] 25 mg PO DAILY 02/14/22 [History] metFORMIN HCL ER [Glucophage XR] 500 mg PO DAILY 02/14/22 [History] Follow up Appointment(s)/Referral(s): Gala Polk MD [STAFF PHYSICIAN] - As Needed Patient Instructions/Handouts: Colorectal Polyps (GEN), Diverticulosis Diet (GEN), Diverticulosis (DC) Activity/Diet/Wound Care/Special Instructions: Repeat colonoscopy in 2 years, 2023 Discharge Disposition: HOME SELF-CARE
== END 2022-04-12 09:46 | disposition home or self-care (01) ==
LOC: ORWHC2ENDO 07:15
PROVIDERS: ATTEND Surgery Plastic and Reconstructive Surgery
DX: Z12.11 Encounter for screening for malignant neoplasm of colon (principal); K63.5 Polyp of colon; K57.30 Diverticulosis of large intestine without perforation or abscess without bleeding; K64.4 Residual hemorrhoidal skin tags; Z80.0 Family history of malignant neoplasm of digestive organs; K52.9 Noninfective gastroenteritis and colitis, unspecified; K64.1 Second degree hemorrhoids; Z86.73 Personal history of transient ischemic attack (TIA), and cerebral infarction without residual deficits; Z86.718 Personal history of other venous thrombosis and embolism; E11.9 Type 2 diabetes mellitus without complications; Z79.84 Long term (current) use of oral hypoglycemic drugs; K21.9 Gastro-esophageal reflux disease without esophagitis; Z87.19 Personal history of other diseases of the digestive system; I10 Essential (primary) hypertension; E78.5 Hyperlipidemia, unspecified; Z80.8 Family history of malignant neoplasm of other organs or systems; M85.80 Other specified disorders of bone density and structure, unspecified site; Z98.890 Other specified postprocedural states; Z87.891 Personal history of nicotine dependence; Z80.3 Family history of malignant neoplasm of breast; Z80.49 Family history of malignant neoplasm of other genital organs; Z79.82 Long term (current) use of aspirin; Z79.02 Long term (current) use of antithrombotics/antiplatelets; Z79.52 Long term (current) use of systemic steroids; Z79.899 Other long term (current) drug therapy
CPT/HCPCS: 88305; 45380; J2704

== ENCOUNTER → 2022-04-13 | Day surgery (SDC) | payer MEDICARE ==
[2022-04-13 08:00] VITALS: RESP 16
--- NOTE | 2022-04-13 08:59 | P.PCN ---
Date of Procedure: 04/13/22 Preoperative Diagnosis: Microcalcifications of concern upper outer quadrant left breast Postoperative Diagnosis: Same Procedure(s) Performed: Stereotactic core biopsy left breast Anesthesia: local Surgeon: Dalia Carballo Pathology: other (Breast tissue with microcalcifications noted in specimen) Condition: stable Disposition: same day Indications for Procedure: Microcalcifications of concern left breast upper outer quadrant Operative Findings: microcalcifications of concern noted in biopsy specimen Description of Procedure: The patient is a 76-year-old female who was noted to have microcalcifications of concern in her left breast in the upper outer quadrant. A stereotactic core biopsy was recommended. Risks and benefits of the procedure were discussed with the patient and she wished to proceed. [facility] She was positioned prone on the lo-rad table. A photovoltaic installation technician film was obtained. A CC from above approach was utilized. The lesion of concern was identified. The lesion was targeted. Secondary to the difficulty seeing the lesion Dr. Gilliam was called in to confirm that the area being biopsied was the appropriate area. This was confirmed. The breast was prepped using Betadine. 20 mL of 1% lidocaine were used to anesthetize the area of concern. A 9-gauge vacuum-assisted core rotating biopsy needle was driven to the correct target. A prefire film was obtained. The needle was noted to be in the correct location. The needle was fired. A post fire film was obtained and the needle was noted to be in the correct location. 13 core biopsy specimens were obtained. Radiograph of the specimen revealed that the area of concern had been adequately sampled with calcifications in the specimen. A secure laura top hat clip was placed. This was noted to be in the correct location. The patient tolerated the procedure in stable condition. The specimen was sent to pathology. The patient will follow-up with Dr. Nunez in 1 week.
[2022-04-13 09:09] VITALS: BP 116/71; PULSE 75; TEMP 98.1
--- NOTE | 2022-04-13 12:17 | MM ---
Date of Procedure: 04/13/22 Preoperative Diagnosis: Microcalcifications of concern upper outer quadrant left breast Postoperative Diagnosis: Same Procedure(s) Performed: Stereotactic core biopsy left breast Anesthesia: local Surgeon: Dalia Carballo Pathology: other (Breast tissue with microcalcifications noted in specimen) Condition: stable Disposition: same day Indications for Procedure: Microcalcifications of concern left breast upper outer quadrant Operative Findings: microcalcifications of concern noted in biopsy specimen Description of Procedure: The patient is a 76-year-old female who was noted to have microcalcifications of concern in her left breast in the upper outer quadrant. A stereotactic core biopsy was recommended. Risks and benefits of the procedure were discussed with the patient and she wished to proceed. The patient was brought to the stereotactic core biopsy room. She was positioned prone on the lo-rad table. A blacksmith helper film was obtained. A CC from above approach was utilized. The lesion of concern was identified. The lesion was targeted. Secondary to the difficulty seeing the lesion Dr. Gilliam was called in to confirm that the area being biopsied was the appropriate area. This was confirmed. The breast was prepped using Betadine. 20 mL of 1% lidocaine were used to anesthetize the area of concern. A 9-gauge vacuum-assisted core rotating biopsy needle was driven to the correct target. A prefire film was obtained. The needle was noted to be in the correct location. The needle was fired. A post fire film was obtained and the needle was noted to be in the correct location. 13 core biopsy specimens were obtained. Radiograph of the specimen revealed that the area of concern had been adequately sampled with calcifications in the specimen. A secure laura top hat clip was placed. This was noted to be in the correct location. The patient tolerated the procedure in stable condition. The specimen was sent to pathology. The patient will follow-up with Dr. Nunez in 1 week. LAURENCE
== END ==
LOC: RADMAMWWP 07:43
PROVIDERS: ATTEND Surgery
DX: N60.12 Diffuse cystic mastopathy of left breast (principal); N60.22 Fibroadenosis of left breast; R92.8 Other abnormal and inconclusive findings on diagnostic imaging of breast
CPT/HCPCS: 88305; 19081; A4648; J2001

== ENCOUNTER → 2022-04-21 | Outpatient (CLI) | payer MEDICARE ==
--- NOTE | 2022-04-21 11:03 | P.PN ---
Subjective Progress Note Date: 04/21/22 Principal diagnosis: fibrocystic breast Edwina is a 76 year old white female status post left breast core biopsy on 04-13-22 which was benign concordant. He tolerated the procedure without difficulty. Objective - Constitutional General appearance: Present: cooperative - EENT Eyes: Present: EOMI ENT: Present: hearing grossly normal - Neck Neck: Present: normal ROM - Respiratory Respiratory: bilateral: CTA - Cardiovascular Heart sounds: normal: S1, S2 - Integumentary Integumentary Comment(s): Biopsy site left breast clean and dry no evidence of hematoma or infection Integumentary: Present: normal turgor Assessment and Plan Assessment: Impression: Patient status post her tachycardia biopsy left breast benign concordant Plan: Repeat left breast mammogram in 6 months with physician exam at that time Patient to follow up sooner any questions or concerns It should be noted that the pigtail risk evaluation for Edwina was 8.2% to 5 years. We discussed chemoprevention and she has declined at this time.
[2022-04-21 11:04] VITALS: BP 94/61; PULSE 60; RESP 17; TEMP 98.9
== END ==
LOC: WWCWWP 10:53
PROVIDERS: ATTEND Surgery
DX: N60.22 Fibroadenosis of left breast (principal); Z98.890 Other specified postprocedural states

== ENCOUNTER → 2022-08-25 | Outpatient (CLI) | payer MEDICARE ==
--- NOTE | 2022-08-25 16:10 | CT ---
EXAMINATION TYPE: CT chest wo con DATE OF EXAM: 08/25/2022 COMPARISON: NONE HISTORY: Solitary pulmonary nodule, abnormal CT DLP: Outside chest x-ray 227 mGycm. Automated Exposure Control for Dose Reduction was Utilized. TECHNIQUE: CT scan of the thorax is performed without IV contrast. FINDINGS: LUNGS: Focal thickened consolidation in the anterior inferior left upper lobe axial images 37 through 41. Tiny 4 x 3 mm anterior right upper lobe nodule axial image 20. No pleural effusion or pneumothor ax seen bilaterally. Mild bibasilar linear scarring and/or atelectasis. MEDIASTINUM: Lack of IV contrast is noted to limit evaluation for mediastinal and especially hilar ad enopathy. There are no definitive greater than 1 cm mediastinal lymph nodes. Prominent but subcentime ter mediastinal lymph nodes are seen. Heart size upper limits of normal. No pericardial effusion. Mil d coronary artery calcification is present. Mild to moderate calcified plaque of the thoracic aorta. Prominent right and left pulmonary arteries raise concern for underlying pulmonary artery hypertensio n. Calcification of level of the mitral valve is seen. There is additional punctate 4 to 5 mm calcifi cation in the left ventricle coronal image 36 of uncertain etiology OTHER: Severe calcified plaque at origin of the celiac artery. Correlate clinically for significant s tenosis. IMPRESSION: No definitive significant greater than 5 mm pulmonary nodules. Possible acute pulmonary p rocess in the anterior-inferior lingula. It is slightly or masslike on axial images versus more thick ened and elongated on coronal and sagittal images. Neoplasm unlikely but not entirely excluded withou t prior comparison. Consider PET/CT to further evaluate if no old outside CT study is available for c orrelation. Postinflammatory etiology would be favored.
== END | disposition home or self-care (01) ==
LOC: RADCTMAIN 11:52
PROVIDERS: ATTEND Family Medicine
DX: R91.1 Solitary pulmonary nodule (principal)
CPT/HCPCS: 71250

== ENCOUNTER → 2022-10-06 | Outpatient (CLI) | payer MEDICARE ==
--- NOTE | 2022-10-09 06:19 | PE ---
EXAMINATION TYPE: PET CT fusion skull to thigh DATE OF EXAM: 10/06/2022 COMPARISON: Chest CT August 25, 2022 HISTORY: Solitary pulmonary nodule, abnormal CT. TECHNIQUE: Following the intravenous administration of 8.00 mCi of F-18 FDG, whole body images are p erformed from the skull base to the midthigh. Images are reviewed on the computer in the coronal, ax ial, and sagittal planes. Reconstructed rotating images are created on independent workstation and r eviewed on the computer. A localization and attenuation correction CT is performed in conjunction w ith the PET scan. Blood glucose level equals 140 SCAN: Initial Scan FINDINGS: SKULL BASE AND NECK: Mild increased uptake lower right cervical muscles could reflect focal inflamma tory change, correlate clinically. No suspicious abnormal hypermetabolic uptake. CHEST, MEDIASTINUM, AND HILAR REGION: Stable 4 mm anterior right upper lobe nodule axial image 72. Pe rsistent linear scarring with slightly more nodular scarring or atelectatic change in the left mid to lower lung extending anteriorly inferiorly. No abnormal hypermetabolic uptake to suggest malignancy at this level. No abnormal hypermetabolic uptake in the entire thorax. ABDOMEN AND PELVIS: Nonspecific bowel uptake. No abnormal hypermetabolic adrenal masses. Low dense ad renal masses bilaterally consistent with benign lipid rich adenomas larger in size on the right are r edemonstrated. Normal excretion within bladder. OSSEOUS STRUCTURES: No areas of abnormal hypermetabolic uptake. OTHER CT: Calcification level of the mitral and aortic valve redemonstrated. Prominent pulmonary ivan diamond again seen. Mild/moderate calcified plaque left greater than the right carotid bulbs redemonstra shawn. Densely calcified plaque of the abdominal aorta extends into iliac branch vessels. There is fat-conta ining left lateral pelvic hernia. IMPRESSION: No abnormal hypermetabolic uptake to suggest malignancy.
== END | disposition home or self-care (01) ==
LOC: RADPETMAIN 13:59
PROVIDERS: ATTEND Internal Medicine Sleep Medicine
DX: R91.1 Solitary pulmonary nodule (principal)
CPT/HCPCS: 78815; A9552

== ENCOUNTER → 2022-10-13 | Outpatient (CLI) | payer MEDICARE ==
--- NOTE | 2022-10-13 13:57 | MM ---
Reason for Exam: Follow-up at short interval from prior study. Last screening mammogram was performed 8 month(s) ago. Patient History: Menarche at age 12. First Full-Term at age 18. Postmenopausal. Patient used Estrogen for 10 years. Patient used Progesterone for 10 years. 04/13/2022, Benign MG stereo VAD BX LT on the left side. Sister had breast cancer, age 46. Sister had breast cancer, age 45. Mother had breast cancer, age 50. Risk Values: Nikia 5 year model risk: 9.7%. NCI Lifetime model risk: 17.6%. Prior Study Comparison: 02/07/2021 Bilateral Screening Mammogram, [facility]. 02/14/2022 Bilateral MG 3D screening mammo w/cad, [facility]. 02/22/2022 Left MG 3D work up w/cad LT, [facility]. Tissue Density: Left: The breast tissue is heterogeneously dense. This may lower the sensitivity of mammography. Findings: Analyzed By CAD. Stable postbiopsy changes. No new suspicious masses, calcifications or distortions. Overall Assessment: Benign, BI-RAD 2 Management: Screening Mammogram of both breasts in 1 year. Results were given to the patient verbally at the time of exam. Patient should continue monthly self-breast exams. A clinical breast exam by your physician is recommended on an annual basis. This exam should not preclude additional follow-up of suspicious palpable abnormalities. Note on Nikia scores and lifetime risk: 1. A Nikia score greater than 3% is considered moderate risk. If this is the case, consider specialist referral to assess eligibility for a risk reducing agent. 2. If overall lifetime risk for the development of breast cancer is 20% or higher, the patient may qualify for future screening with alternating mammogram and breast MRI. Electronically signed and approved by: Adryan Shaikh DO
== END | disposition home or self-care (01) ==
LOC: RADMAMWWP 12:48
PROVIDERS: ATTEND Surgery
DX: R92.8 Other abnormal and inconclusive findings on diagnostic imaging of breast (principal); R92.2 Inconclusive mammogram; Z78.0 Asymptomatic menopausal state; Z80.3 Family history of malignant neoplasm of breast
CPT/HCPCS: 77065; G0279; 77061

== ENCOUNTER → 2022-10-13 | Outpatient (CLI) | payer MEDICARE ==
--- NOTE | 2022-10-19 12:26 | P.PN ---
Progress Note - Text Progress Note Date: 10/19/22 The patient underwent a left breast mammogram on 6922. This was done in follow-up after a left breast stero-core biopsy. The mammogram was felt to be benign BIRADS 2. I have called the patient personally and discussed this with her. Her 5 year Nikia risk is 9.7%. She has declined chemoprevention. She will have a repeat bilateral mammogram in 6 months with physician exam at that time. If she has any questions before she will call us sooner. She states that she has nothing she is concerned of in her breast. She was originally scheduled for a breast examination on 10-13-22 but secondary to having to wait in our office she left early, she would prefer not to reschedule the examination at this time but will be seen again in 6 months. If she notes anything of concern she will call us sooner.
== END ==
LOC: WWCWWP 12:47
PROVIDERS: ATTEND Surgery
DX: R92.8 Other abnormal and inconclusive findings on diagnostic imaging of breast (principal)

== ENCOUNTER → 2022-10-18 | Outpatient (CLI) | payer MEDICARE ==
[2022-10-18 15:57] LABS: T4, Free (Free Thyroxine) 1.48 ng/dL (0.80-1.80)
== END | disposition home or self-care (01) ==
LOC: LABWHC1 10:46
PROVIDERS: ATTEND Internal Medicine Endocrinology, Diabetes & Metabolism
DX: E04.2 Nontoxic multinodular goiter (principal)
CPT/HCPCS: 36415; 84439; 84443

== ENCOUNTER → 2022-10-18 | Outpatient (CLI) | payer MEDICARE ==
--- NOTE | 2022-10-18 15:57 | US ---
EXAMINATION TYPE: US thyroid st tissue head/neck DATE OF EXAM: 10/18/2022 COMPARISON: US 09/08/21 CLINICAL INDICATION: Female, 76 years old with history of E04.2 NONTOXIC MULTINODULAR GOITER; Goiter. Hx of nodules, FNA. GLAND SIZE: Right Lobe: 6.3 x 1.8 x 2.1 cm Overall Parenchyma: heterogenous Left Lobe: 5.6 x 1.9 x 2.4 cm Overall Parenchyma: heterogenous Isthmus Thickness: 0.37 cm NODULES RIGHT: # of nodules measured on right: 0 LEFT: # of nodules measured on left: 2 1. 2.5 x 1.9 x 2.1 cm, mid mid, solid or almost completely solid, hypoechoic nodule, which is taller than wide, with smooth margins, without echogenic foci. TR 4. Prior size: 2.0 x 1.4 x 1.8 cm 2. 2.0 X 1.9 x 1.4 cm, lower mid, solid or almost completely solid, hypoechoic nodule, which is wi jaja than tall, with smooth margins, without echogenic foci. Prior size: 1.7 x 1.1 x 1.7 cm ISTHMUS: # of nodules measured in the isthmus: 0 Bilateral neck scanned, no evidence of lymphadenopathy. IMPRESSION: Moderately suspicious nodule left lobe thyroid. Fine-needle aspiration recommended. 2017 ACR TI-RADS LEVEL: TR-RADS 4 - Moderately Suspicious: Follow if > 1 cm, FNA if > 1.5 cm *Highest TI-RADS level nodule reported
== END | disposition home or self-care (01) ==
LOC: RADUSWWP 10:08
PROVIDERS: ATTEND Internal Medicine Endocrinology, Diabetes & Metabolism
DX: E04.2 Nontoxic multinodular goiter (principal)
CPT/HCPCS: 76536

== ENCOUNTER 2022-12-16 10:31 | Emergency (ER) | payer MEDICARE ==
[2022-12-16 10:37] VITALS: TEMP 98.4
[2022-12-16] MEDS ORDERED: DICYCLOMINE 10 MG/ML 2 ML AMP IM STA (11:04)
[2022-12-16] MEDS ORDERED: ONDANSETRON 4 MG/2 ML VIAL IVP STA (11:04)
[2022-12-16] MEDS ORDERED: SODIUM CHLORIDE 0.9% 1,000 ML IV STA (11:04)
[2022-12-16] MEDS ORDERED: FAMOTIDINE 20 MG/2 ML VIAL IV STA (11:05)
--- NOTE | 2022-12-16 11:07 | ED ---
General Adult HPI - General Chief complaint: Abdominal Pain Stated complaint: dehydration Time Seen by Provider: 12/16/22 10:54 Source: patient, family, RN notes reviewed Mode of arrival: ambulatory Limitations: no limitations - History of Present Illness Initial comments: Patient is a pleasant 77-year-old female presenting to the emergency department with concerns of abdominal problems. Symptoms have been going on for around 2 months. Patient did see her doctor and referred to GI. Patient did see GI however was referred for scope with a different doctor and is still a couple months away. Patient has decreased appetite with occasional vomiting. Decreased urination today. Patient is having abdominal discomfort diffusely. Patient has had some loose stools over the past few days. No fever. - Related Data Home Medications Medication Instructions Recorded Confirmed Aspirin [Adult Low Dose Aspirin EC] 81 mg PO DAILY 07/19/16 04/21/22 Atorvastatin [Lipitor] 20 mg PO HS 07/19/16 04/21/22 Calcium Carbonate/Vitamin D3 1 each PO DAILY 07/19/16 04/21/22 [Caltrate 600 Plus D3 20 Mcg (800 Iu)] Cholecalciferol [Vitamin D3 (25 5,000 unit PO DAILY 07/19/16 04/21/22 Mcg = 1000 Iu)] Metoprolol Tartrate 25 mg PO DAILY 07/19/16 04/21/22 Omeprazole [PriLOSEC] 20 mg PO AC-BID 07/19/16 04/21/22 traMADol HCL [Ultram] 50 mg PO Q8HR PRN 07/19/16 04/21/22 Tolterodine ER [Detrol LA] 4 mg PO DAILY 08/10/20 04/21/22 Clopidogrel [Plavix] 75 mg PO DAILY 02/14/22 04/21/22 Flunisolide Nasal [place] [Nasalide] 1 spray NASAL DAILY PRN 02/14/22 04/21/22 Furosemide [Lasix] 25 mg PO HS 02/14/22 04/21/22 Gabapentin [Neurontin] 100 mg PO BID 02/14/22 04/21/22 Losartan [Cozaar] 25 mg PO DAILY 02/14/22 04/21/22 metFORMIN HCL ER [Glucophage XR] 500 mg PO DAILY 02/14/22 04/21/22 Previous Rx's Medication Instructions Recorded Famotidine [Pepcid] 20 mg PO BID #60 tablet 12/16/22 Allergies Allergy/AdvReac Type Severity Reaction Status Date / Time No Known Allergies Allergy Verified 12/16/22 10:37 Review of Systems ROS Statement: Those systems with pertinent positive or pertinent negative responses have been documented in the HPI. ROS Other: All systems not noted in ROS Statement are negative. Constitutional: Denies: fever Eyes: Denies: eye pain ENT: Denies: ear pain Respiratory: Denies: cough Cardiovascular: Denies: chest pain Endocrine: Denies: fatigue Gastrointestinal: Reports: as per HPI, abdominal pain, nausea Genitourinary: Denies: dysuria Musculoskeletal: Denies: back pain Skin: Denies: rash Past Medical History Past Medical History: Cancer, CVA/TIA, Diabetes Mellitus, Deep Vein Thrombosis (DVT), GERD/Reflux, GI Bleed, Hyperlipidemia, Hypertension Additional Past Medical History / Comment(s): AORTIC ANEURYSM, BEING MONITORED. HX SKIN CA(scalp). 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 TYPE 2 DM, DIET CONTROLLED. HX LT ARM DVT. OVERACTIVE BLADDER, RX HELPS. Osteopenia. 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 History of Any Multi-Drug Resistant Organisms: None Reported Past Surgical History: Bladder Surgery Additional Past Surgical History / Comment(s): CTR LEXI. LT CAROTID ENDARTERECTOMY. Bladder sling procedure. Wrist surgery. Colonoscopy 2019. D&C 2016. Past Anesthesia/Blood Transfusion Reactions: No Reported Reaction Past Psychological History: No Psychological Hx Reported Smoking Status: Former smoker Past Alcohol Use History: None Reported Past Drug Use History: None Reported - Past Family History Sister(s) Family Medical History: Cancer Additional Family Medical History / Comment(s): Colon cancer. Another sister had breast cancer. Mother Brother(s) Family Medical History: Cancer Brother(s) Family Medical History: Cancer, CVA/TIA Additional Family Medical History / Comment(s): Colon cancer. Mother Family Medical History: Cancer Additional Family Medical History / Comment(s): Uterine cancer. Father Family Medical History: CVA/TIA General Exam Limitations: no limitations General appearance: alert, in no apparent distress Head exam: Present: normocephalic Eye exam: Present: normal appearance Neck exam: Present: normal inspection Respiratory exam: Present: normal lung sounds bilaterally Cardiovascular Exam: Present: regular rate, normal rhythm GI/Abdominal exam: Present: soft, tenderness (Mild diffuse), normal bowel sounds. Absent: distended, guarding, rebound, rigid, pulsatile mass Extremities exam: Present: normal inspection Neurological exam: Present: alert Psychiatric exam: Present: normal affect, normal mood Skin exam: Present: normal color Course Vital Signs 12/16/22 12/16/22 10:35 12:55 Temperature 98.4 F Pulse Rate 100 89 Respiratory 20 18 Rate Blood Pressure 122/58 127/50 O2 Sat by Pulse 99 92 L Oximetry Medical Decision Making - Medical Decision Making Was pt. sent in by a medical professional or institution (, PA, [employer], urgent care, hospital, or [place] health care facility...) When possible be specific @ -No Did you speak to anyone other than the patient for history (EMS, parent, family, police, friend...)? What history was obtained from this source @ -Family is present and helps confirm history Did you review nursing and triage notes (agree or disagree)? Why? @ -I reviewed and agree with nursing and triage notes Were old charts reviewed (outside hosp., previous admission, EMS record, old EKG, old radiological studies, urgent care reports/EKG's, [place] health care facility records)? Report findings @ -No old charts were reviewed Differential Diagnosis (chest pain, altered mental status, abdominal pain women, abdominal pain men, vaginal bleeding, weakness, fever, dyspnea, syncope, headache, dizziness, GI bleed, back pain, seizure, CVA, palpatations, mental health, musculoskeletal)? @ -Differential Abdominal Pain Women: Appendicitis, Cholecystitis, diverticulosis, ischemic bowel, pancreatitis, hepatitis, UTI, gastroenteritis, AAA, incarcerated hernia, bowel obstruction, constipation, inflammatory bowel, hepatitis, peptic ulcer disease, splenic infarction, perforated viscus, vulvitis, ovarian torsion, PID, kidney stone, placenta abruption, this is not meant to be an all-inclusive list EKG interpreted by me (3pts min.). @ -As above X-rays interpreted by me (1pt min.). @ -None done CT interpreted by me (1pt min.). @ -Port reviewed U/S interpreted by me (1pt. min.). @ -None done What testing was considered but not performed or refused? (CT, X-rays, U/S, labs)? Why? @ -None What meds were considered but not given or refused? Why? @ -None Did you discuss the management of the patient with other professionals (toño stubbs i.e. , PA, [employer], lab, RT, psych nurse, social worker palliative care, supervisor assembly, teacher, humane officer, rn field case manager)? Give summary @ -No Was smoking cessation discussed for >3mins.? @ -No Was critical care preformed (if so, how long)? @ -No Were there social determinants of health that impacted care today? How? (Homelessness, low income, unemployed, alcoholism, drug addiction, transportation, low edu. Level, literacy, decrease access to med. care, [facility], rehab)? @ -No Was there de-escalation of care discussed even if they declined (Discuss DNR or withdrawal of care, Hospice)? DNR status @ -No What co-morbidities impacted this encounter? (DM, HTN, Smoking, COPD, CAD, Cancer, CVA, ARF, Chemo, Hep., AIDS, mental health diagnosis, sleep apnea, morbid obesity)? @ -None Was patient admitted / discharged? Hospital course, mention meds given and route, prescriptions, significant lab abnormalities, going to OR and other pertinent info. @ -Patient reevaluated and resting comfortably in bed. Patient updated on results. Patient is comfortable with discharge home. Patient is feeling somewhat better. Patient advised of prescription as well as need for follow-up with primary care physician, GI/surgeon as well as her vascular surgeon. Patient states she sees Dr. Stiles secondary to known history of aortic stenosis Undiagnosed new problem with uncertain prognosis? @ -No Drug Therapy requiring intensive monitoring for toxicity (Heparin, Nitro, Insulin, Cardizem)? @ -No Were any procedures done? @ -No Diagnosis/symptom? @ -Abdominal pain Acute, or Chronic, or Acute on Chronic? @ -Acute Uncomplicated (without systemic symptoms) or Complicated (systemic symptoms)? @ -default Side effects of treatment? @ -No Exacerbation, Progression, or Severe Exacerbation? @ -No Poses a threat to life or bodily function? How? (Chest pain, [place], [place], pneumonia, PE, COPD, DKA, ARF, appy, cholecystitis, CVA, Diverticulitis, Homicidal, Suici renny, threat to staff... and all critical care pts) @ -No - Lab Data Result diagrams: 12/16/22 11:09 12/16/22 11:09 Lab Results 12/16/22 12/16/22 12/16/22 Range/Units 11:09 11:09 11:09 WBC 11.8 H (3.8-10.6) k/uL RBC 4.72 (3.80-5.40) m/uL Hgb 15.4 (11.4-16.0) gm/dL Hct 45.8 (34.0-46.0) % MCV 97.0 (80.0-100.0) fL MCH 32.6 (25.0-35.0) pg MCHC 33.6 (31.0-37.0) g/dL RDW 13.4 (11.5-15.5) % Plt Count 269 (150-450) k/uL MPV 7.7 Neutrophils % 68 % Lymphocytes % 17 % Monocytes % 11 % Eosinophils % 0 % Basophils % 1 % Neutrophils # 8.0 H (1.3-7.7) k/uL Lymphocytes # 2.1 (1.0-4.8) k/uL Monocytes # 1.2 H (0-1.0) k/uL Eosinophils # 0.0 (0-0.7) k/uL Basophils # 0.1 (0-0.2) k/uL PT 10.1 (9.0-12.0) sec INR 0.9 (<1.2) APTT 23.0 (22.0-30.0) sec Sodium (137-145) mmol/L Potassium (3.5-5.1) mmol/L Chloride (98-107) mmol/L Carbon Dioxide (22-30) mmol/L Anion Gap mmol/L BUN (7-17) mg/dL Creatinine (0.52-1.04) mg/dL Est GFR (CKD-EPI)AfAm (>60 ml/min/1.73 sqM) Est GFR (CKD-EPI)NonAf (>60 ml/min/1.73 sqM) Glucose (74-99) mg/dL Calcium (8.4-10.2) mg/dL Total Bilirubin (0.2-1.3) mg/dL AST (14-36) U/L ALT (4-34) U/L Alkaline Phosphatase (38-126) U/L Total Protein (6.3-8.2) g/dL Albumin (3.5-5.0) g/dL Amylase (30-110) U/L Lipase (23-300) U/L Urine Color Light Red Urine Appearance Cloudy H (Clear) Urine pH 5.5 (5.0-8.0) Ur Specific [place] 1.010 (1.001-1.035) Urine Protein Trace H (Negative) Urine Glucose (UA) Negative (Negative) Urine Ketones 1+ H (Negative) Urine Blood Negative (Negative) Urine Nitrite Negative (Negative) Urine Bilirubin Negative (Negative) Urine Urobilinogen 2.0 (<2.0) mg/dL Ur Leukocyte Esterase Small H (Negative) Urine RBC 2 (0-5) /hpf Urine WBC 7 H (0-5) /hpf Ur Squamous Epith Cells 9 H (0-4) /hpf Urine Bacteria Few H (None) /hpf Hyaline Casts 29 H (0-2) /lpf Urine Mucus Rare H (None) /hpf 12/16/22 Range/Units 11:09 WBC (3.8-10.6) k/uL RBC (3.80-5.40) m/uL Hgb (11.4-16.0) gm/dL Hct (34.0-46.0) % MCV (80.0-100.0) fL MCH (25.0-35.0) pg MCHC (31.0-37.0) g/dL RDW (11.5-15.5) % Plt Count (150-450) k/uL MPV Neutrophils % % Lymphocytes % % Monocytes % % Eosinophils % % Basophils % % Neutrophils # (1.3-7.7) k/uL Lymphocytes # (1.0-4.8) k/uL Monocytes # (0-1.0) k/uL Eosinophils # (0-0.7) k/uL Basophils # (0-0.2) k/uL PT (9.0-12.0) sec INR (<1.2) APTT (22.0-30.0) sec Sodium 135 L (137-145) mmol/L Potassium 3.8 (3.5-5.1) mmol/L Chloride 93 L (98-107) mmol/L Carbon Dioxide 32 H (22-30) mmol/L Anion Gap 10 mmol/L BUN 15 (7-17) mg/dL Creatinine 0.72 (0.52-1.04) mg/dL Est GFR (CKD-EPI)AfAm >90 (>60 ml/min/1.73 sqM) Est GFR (CKD-EPI)NonAf 81 (>60 ml/min/1.73 sqM) Glucose 115 H (74-99) mg/dL Calcium 8.8 (8.4-10.2) mg/dL Total Bilirubin 0.8 (0.2-1.3) mg/dL AST 20 (14-36) U/L ALT 15 (4-34) U/L Alkaline Phosphatase 123 (38-126) U/L Total Protein 6.3 (6.3-8.2) g/dL Albumin 3.5 (3.5-5.0) g/dL Amylase 37 (30-110) U/L Lipase 31 (23-300) U/L Urine Color Urine Appearance (Clear) Urine pH (5.0-8.0) Ur Specific [place] (1.001-1.035) Urine Protein (Negative) Urine Glucose (UA) (Negative) Urine Ketones (Negative) Urine Blood (Negative) Urine Nitrite (Negative) Urine Bilirubin (Negative) Urine Urobilinogen (<2.0) mg/dL Ur Leukocyte Esterase (Negative) Urine RBC (0-5) /hpf Urine WBC (0-5) /hpf Ur Squamous Epith Cells (0-4) /hpf Urine Bacteria (None) /hpf Hyaline Casts (0-2) /lpf Urine Mucus (None) /hpf Disposition Clinical Impression: Abdominal pain Disposition: HOME SELF-CARE Condition: Stable Instructions (If sedation given, give patient instructions): Abdominal Pain (ED) Additional Instructions: Please follow-up with your primary care physician in the next day or 2 for r echeck. Please also follow-up with gastroenterology/surgeon for scope. Additional number provided. Please also follow-up with your vascular surgeon and have them review CT done today. Return for not tolerating food or fluids, increased pain, vomiting, worsening or changing symptoms or other concerns. Prescription has been sent to pharmacy. Please take this in addition to the omeprazole that you are currently taking. Prescriptions: Famotidine [Pepcid] 20 mg PO BID #60 tablet Is patient prescribed a controlled substance at d/c from ED?: No Referrals: Samuel Stiles MD [STAFF PHYSICIAN] - 1-[address] MD [Medical Doctor] - 1-2 days Benigno Hung MD [STAFF PHYSICIAN] - 1-2 days Time of Disposition: 13:16
[2022-12-16 11:35] LABS: Appearance,Urine Cloudy (Clear); Bacteria,Urine Few /hpf; Bilirubin,Urine Negative (Negative); Blood,Urine Negative (Negative); Color,Urine Light Red; Glucose,Urine (UA) Negative (Negative); Hyaline Casts,Urine 29 /lpf (0-2); Ketones,Urine 1+ (Negative); Leukocyte Esterase,Urine Small (Negative); Mucus,Urine Rare /hpf; Nitrite,Urine Negative (Negative); PH, Urine 5.5 (5.0-8.0); Protein,Urine Trace (Negative); RBC,Urine 2 /hpf (0-5); Squamous Epithelial Cell,Urine 9 /hpf (0-4); WBC,Urine 7 /hpf (0-5)
[2022-12-16 11:47] LABS: ALT 15 U/L (4-34); AST 20 U/L (14-36); African American GFR (CKD) >90 (>60 ml/min/1.73 sqM); Albumin 3.5 g/dL (3.5-5.0); Alkaline Phosphatase 123 U/L (38-126); Amylase 37 U/L (30-110); Anion Gap 10 mmol/L; Blood Urea Nitrogen 15 mg/dL (7-17); Calcium 8.8 mg/dL (8.4-10.2); Carbon Dioxide 32 mmol/L (22-30); Chloride 93 mmol/L (98-107); Glucose 115 mg/dL (74-99); INR 0.9 (<1.2); Lipase 31 U/L (23-300); Non-African American GFR(CKD) 81 (>60 ml/min/1.73 sqM); Potassium 3.8 mmol/L (3.5-5.1); Prothrombin Time 10.1 sec (9.0-12.0); Sodium 135 mmol/L (137-145); Total Bilirubin 0.8 mg/dL (0.2-1.3); Total Protein 6.3 g/dL (6.3-8.2)
[2022-12-16 11:58] LABS: Basophils # (A) 0.1 k/uL (0-0.2); Basophils % (A) 1 %; Eosinophils % (A) 0 %; HCT 45.8 % (34.0-46.0); HGB 15.4 gm/dL (11.4-16.0); Lymphocytes # (A) 2.1 k/uL (1.0-4.8); Lymphocytes % (A) 17 %; MCH 32.6 pg (25.0-35.0); MCHC 33.6 g/dL (31.0-37.0); Mean Platelet Volume 7.7; Monocytes # (A) 1.2 k/uL (0-1.0); Monocytes % (A) 11 %; Neutrophils % (A) 68 %; Platelet Count 269 k/uL (150-450); RBC 4.72 m/uL (3.80-5.40); RDW 13.4 % (11.5-15.5); WBC 11.8 k/uL (3.8-10.6)
--- NOTE | 2022-12-16 12:50 | CT ---
EXAMINATION TYPE: CT abdomen pelvis w con DATE OF EXAM: 12/16/2022 COMPARISON: PET/CT 10/06/2022 and 06/30/2014 HISTORY: GENERAL ABDOMINAL PAIN, DIFFICULTY URINATING X2DAYS CT DLP: 655.4 mGycm CONTRAST: CT scan of the abdomen and pelvis is performed without Oral Contrast and with IV Contrast, patient in jected with 100 mL of Isovue 370. FINDINGS: LUNG BASES-: No visible nodule. No infiltrate. LIVER/GB: No calcified gallstones. No space occupying hepatic lesion. Biliary tree is of normal ca liber. PANCREAS: No inflammation. No distinct mass. SPLEEN: No splenic enlargement. No lesion seen. ADRENALS: Stable nodular thickening of the bilateral adrenal glands. KIDNEYS/BLADDER: No hydronephrosis. No nephrolithiasis. No distinct renal mass. Urinary bladder g rossly unremarkable. BOWEL: Normal appendix. Normal bowel caliber. No inflammation. GENITAL ORGANS: No gross abnormality. LYMPH NODES: No greater than 1cm abdominal or pelvic lymph nodes are appreciated. AORTA: No significant abnormality. OSSEOUS STRUCTURES: Extensive calcific plaque abdominal aorta with high-grade stenosis at the level o f the SMA and multifocal stenosis distally. Plaque extends into the SMA which continues to be patent. There is high-grade stenosis noted of the common iliac arteries bilaterally. OTHER: Fat-containing left inguinal hernia. IMPRESSION: 1. Extensive calcific plaque abdominal aorta with high-grade stenosis at the level of the SMA and mul tifocal stenosis distally. Plaque extends into the SMA which continues to be patent. There is high-gr radha stenosis noted of the common iliac arteries bilaterally. 2. No acute intra-abdominal process identified at this time.
[2022-12-16 12:57] VITALS: BP 127/50; PULSE 89; RESP 18
== END 2022-12-16 13:27 | disposition home or self-care (01) ==
LOC: EC 10:31
DX: R10.84 Generalized abdominal pain (principal); E11.9 Type 2 diabetes mellitus without complications; I10 Essential (primary) hypertension; E78.5 Hyperlipidemia, unspecified; Z79.82 Long term (current) use of aspirin; Z79.02 Long term (current) use of antithrombotics/antiplatelets; Z79.84 Long term (current) use of oral hypoglycemic drugs; Z79.899 Other long term (current) drug therapy; Z87.891 Personal history of nicotine dependence; Z86.73 Personal history of transient ischemic attack (TIA), and cerebral infarction without residual deficits; Z86.718 Personal history of other venous thrombosis and embolism
CPT/HCPCS: 36415; 80053; 82150; 83690; 85025; 85610; 85730; 81001; 74177; 99284; 96374; 96375; 96361; 96372; J0500; J2405; Q9967

== ENCOUNTER → 2022-12-26 | Day surgery (SDC) | payer MEDICARE ==
[2022-12-22 08:25] VITALS: BMI 24.4
[~2022-12-26] MED LIST changes: +LIDOCAINE 2% INJ 20 MG/ML (2 ML VIAL) ONE; +PROPOFOL 10 MG/ML 20 ML VIAL IV ONE
[2022-12-26 09:36] LABS: Glucose,Whole Blood 166 mg/dL (70-110)
[2022-12-26 09:37] VITALS: TEMP 97
--- NOTE | 2022-12-26 09:41 | P.PCN ---
Date of Procedure: 12/26/22 Procedure(s) Performed: BRIEF HISTORY: Patient is a 77-year-old, pleasant, male scheduled for an upper endoscopy as a part of evaluation of chronic epigastric pain for the last few months duration.. PROCEDURE PERFORMED: Esophagogastroduodenoscopy with biopsy. PREOPERATIVE DIAGNOSIS: Chronic epigastric pain. IV sedation per anesthesia. PROCEDURE: After informed consent was obtained, the patient was brought into the endoscopy unit. IV sedation was administered by Anesthesia under continuous monitoring. Initially the Olympus GIF-140 video endoscope was inserted into the mouth. Esophagus intubated without any difficulty. It was gradually advanced into the stomach and duodenum and carefully examined. The bulb and the second part of the duodenum appeared normal. The scope at this time was withdrawn to the stomach, adequately insufflated with air, and upon careful examination, mucosa of the antrum, and a 5 mm ulcer that was biopsied. There was scarring in the prepyloric area and a site of previous gastric ulcer. Rest of the body, cardia and the fundus appeared normal. The scope was then withdrawn into the esophagus. The GE junction was located at 39 cm from the incisors. The esophagus appeared normal. There were no erosions or ulcerations seen and the patient tolerated the procedure well. IMPRESSION: 1. Small 5 mm antral ulcer status post biopsy. 2. Mild gastritis and scarring in the prepyloric area from previous peptic ulcer disease. RECOMMENDATIONS: The findings of this examination were discussed with the patient as well as a family. She was advised to follow with the biopsy results. Continue with omeprazole 20 mg daily and avoid NSAIDs..
[2022-12-26 10:12] VITALS: RESP 12
[2022-12-26 10:38] VITALS: BP 124/57; PULSE 90
== END ==
LOC: ORWHC2ENDO 08:08
PROVIDERS: ATTEND Internal Medicine Gastroenterology
DX: K29.50 Unspecified chronic gastritis without bleeding (principal); I10 Essential (primary) hypertension; E78.5 Hyperlipidemia, unspecified; E11.9 Type 2 diabetes mellitus without complications; K21.9 Gastro-esophageal reflux disease without esophagitis; Z79.84 Long term (current) use of oral hypoglycemic drugs; Z86.73 Personal history of transient ischemic attack (TIA), and cerebral infarction without residual deficits; Z79.899 Other long term (current) drug therapy; Z87.11 Personal history of peptic ulcer disease; Z79.82 Long term (current) use of aspirin
CPT/HCPCS: 88305; 43239; J2704; J2001

== ENCOUNTER 2023-01-17 10:38 | Emergency (ER) | payer MEDICARE ==
--- NOTE | 2023-01-17 10:52 | ED ---
Abdominal Pain HPI - General Source: patient, RN notes reviewed Mode of arrival: ambulatory Limitations: no limitations <Gagan Sepulveda - Last Filed: 01/17/23 10:51> - General Source: patient, RN notes reviewed, old records reviewed <Frank Rodriguez - Last Filed: 01/17/23 16:33> - General Chief Complaint: Abdominal Pain Stated Complaint: Abd pain Time Seen by Provider: 01/17/23 10:51 - History of Present Illness Initial Comments: 77-year-old female presents emergency Department chief complaint abdominal pain. Patient had a scope [address] Garcia is found to have an ulcer. Patient is currently taking and antacids. Patient states last night she felt worsening pain, nausea vomiting diarrhea. She states she has a follow-up appointment on Sunday. Patient states that symptoms were worse so she presents emergency department. (Gagan Sepulveda) Patient is a 77-year-old female who was initially seen as a quick note in triage. Presents emergency Department complaining of abdominal pain. States it got worse today which is why she presents. Had some nausea and vomiting as well. States the pain is more in the left lower quadrant. No epigastric. Had a recent scope. Denies any diarrhea or constipation. Still passing gas. Denies any urinary complaints. No vaginal discharge or bleeding. No chest rajiv n. No fevers. No shortness of breath. I evaluated the patient when she was placed in a hallway bed. She states she has a history of a hernia in her lower abdomen and thinks this may be what is causing her pain. (Frank Rodriguez) - Related Data Home Medications Medication Instructions Recorded Confirmed Aspirin [Adult Low Dose Aspirin EC] 81 mg PO DAILY 07/19/16 01/17/23 Calcium Carbonate/Vitamin D3 1 tab PO DAILY 07/19/16 01/17/23 [Caltrate 600 Plus D3 20 Mcg (800 Iu)] Metoprolol Tartrate 25 mg PO DAILY 07/19/16 01/17/23 Omeprazole [PriLOSEC] 20 mg PO AC-BRKFST 07/19/16 01/17/23 traMADol HCL [Ultram] 50 mg PO Q8HR PRN 07/19/16 01/17/23 Tolterodine ER [Detrol LA] 4 mg PO DAILY 08/10/20 01/17/23 Clopidogrel [Plavix] 75 mg PO DAILY 02/14/22 01/17/23 Furosemide [Lasix] 20 mg PO DAILY 02/14/22 01/17/23 Losartan [Cozaar] 25 mg PO DAILY 02/14/22 01/17/23 metFORMIN HCL ER [Glucophage XR] 500 mg PO DAILY 02/14/22 01/17/23 Albuterol Inhaler [Ventolin Hfa 2 puff INHALATION RT-Q6H PRN 01/17/23 01/17/23 Inhaler] Atorvastatin [Lipitor] 20 mg PO HS 01/17/23 01/17/23 Cholecalciferol [Vitamin D3 (25 50 mcg PO DAILY 01/17/23 01/17/23 Mcg = 1000 Iu)] Famotidine [Pepcid] 20 mg PO AC-BID 01/17/23 01/17/23 Gabapentin 300 mg PO BID 01/17/23 01/17/23 Ipratropium-Albuterol Nebulize 3 ml INHALATION RT-QID 01/17/23 01/17/23 [Duoneb 0.5 mg-3 mg/3 ml Soln] Allergies Allergy/AdvReac Type Severity Reaction Status Date / Time No Known Allergies Allergy Verified 01/17/23 13:25 Review of Systems ROS Other: All systems not noted in ROS Statement are negative. <Gagan Sepulveda - Last Filed: 01/17/23 10:51> ROS Other: All systems not noted in ROS Statement are negative. <Frank Rodriguez - Last Filed: 01/17/23 16:33> ROS Statement: Those systems with pertinent positive or pertinent negative responses have been documented in the HPI. Review of Systems: CONST: Denies fever EYES: Denies blurry vision ENT: Denies nasal congestion C/V: Denies Chest pain RESP: Denies shortness of breath GI: Endorses abdominal pain : Denies dysuria SKIN: Denies rash. MSK: Denies joint pain. NEURO: Denies headache (Frank Rodriguez) Past Medical History Past Medical History: Cancer, CVA/TIA, Diabetes Mellitus, Deep Vein Thrombosis (DVT), GERD/Reflux, GI Bleed, Hyperlipidemia, Hypertension Additional Past Medical History / Comment(s): AORTIC ANEURYSM, BEING MONITORED. HX SKIN CA(scalp). 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 TYPE 2 DM, DIET CONTROLLED. HX LT ARM DVT. OVERACTIVE BLADDER, RX HELPS. Osteopenia. 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 seen in er 12/16/22-for dehydration, episodes of N/V/D History of Any Multi-Drug Resistant Organisms: None Reported Past Surgical History: Bladder Surgery Additional Past Surgical History / Comment(s): CTR LEXI. LT CAROTID ENDARTERECTOMY. Bladder sling procedure. Wrist surgery. Colonoscopy 2019. D &C 2016. Past Anesthesia/Blood Transfusion Reactions: No Reported Reaction Past Psychological History: No Psychological Hx Reported Smoking Status: Former smoker - Past Family History Sister(s) Family Medical History: Cancer Additional Family Medical History / Comment(s): Colon cancer. Another sister had breast cancer. Mother Brother(s) Family Medical History: Cancer Brother(s) Family Medical History: Cancer, CVA/TIA Additional Family Medical History / Comment(s): Colon cancer. Mother Family Medical History: Cancer Additional Family Medical History / Comment(s): Uterine cancer. Father Family Medical History: CVA/TIA <Gagan Sepulveda - Last Filed: 01/17/23 10:51> General Exam Limitations: no limitations <Gagan Sepulveda - Last Filed: 01/17/23 10:51> <Frank Rodriguez - Last Filed: 01/17/23 16:33> - General Exam Comments Initial Comments: Visual Physical Exam Vital signs reviewed General: Well-appearing, nontoxic, no acute distress. Head: Normocephalic, atraumatic Eyes: PERRLA, EOMI ENT: Airway patent Chest: Nonlabored breathing Skin: No visual rash, normal skin tone Neuro: Alert and oriented 3 Musculoskeletal: No gross abnormalities (Gagan Sepulveda) General: Appears in no acute distress. HEAD: Normal with no signs of head trauma. EYES: PERRLA, EOMI, conjunctiva normal, no discharge. ENT: Hearing grossly intact, normal oropharynx. RESPIRATORY: Clear breath sounds bilaterally. No wheezes, rales, or rhonchi. C/V: Regular rate and rhythm. S1 and S2 auscultated, no edema, peripheral pulses 2+ and intact throughout ABD: Abd is soft, nontender, nondistended. No masses palpated. EXT: Normal range of motion, no obvious deformity SKIN: No rashes or lesions observed on exposed skin. NEURO: Alert and Oriented 4. (Frank Rodriguez) Course Vital Signs 01/17/23 10:44 Temperature 97.6 F Pulse Rate 114 H Respiratory 18 Rate Blood Pressure 128/78 O2 Sat by Pulse 94 L Oximetry Medical Decision Making <Gagan Sepulveda - Last Filed: 01/17/23 10:51> - Lab Data Result diagrams: 01/17/23 12:06 01/17/23 12:06 - EKG Data -: EKG Interpreted by Me <Frank Rodriguez - Last Filed: 01/17/23 16:33> - Medical Decision Making I performed a quick note portion of this Chart signed Gagan Sepulveda PA-C (Gagan Sepulveda) Was pt. sent in by a medical professional or institution ([facility], STRUCTURAL STEEL [employer]TER, urgent care, hospital, or retirement...) When possible be specific @ -No Did you speak to anyone other than the patient for history (EMS, parent, family, police, friend...)? What history was obtained from this source @ -No Did you review nursing and triage notes (agree or disagree)? Why? @ -I reviewed and agree with nursing and triage notes Were old charts reviewed (outside hosp., previous admission, EMS record, old EKG, old radiological studies, urgent care reports/EKG's, retirement records)? Report findings @ -Old charts reviewed. Differential Diagnosis (chest pain, altered mental status, abdominal pain women, abdominal pain men, vaginal bleeding, weakness, fever, dyspnea, syncope, headache, dizziness, GI bleed, back pain, seizure, CVA, palpatations, mental health, musculoskeletal)? @ -Differential Abdominal Pain Women: Appendicitis, Cholecystitis, diverticulosis, ischemic bowel, pancreatitis, hepatitis, UTI, gastroenteritis, AAA, incarcerated hernia, bowel obstruction, constipation, inflammatory bowel, hepatitis, peptic ulcer disease, splenic infarction, perforated viscus, vulvitis, ovarian torsion, PID, kidney stone, placenta abruption, this is not meant to be an all-inclusive list EKG interpreted by me (3pts min.). @ -As above X-rays interpreted by me (1pt min.). @ -None done CT interpreted by me (1pt min.). @ -CT imaging reveals no obvious acute intra-abdominal process. Patient does have aortic stenosis which is known to the patient as well as calcifications of bilateral iliacs which is known to the patient. U/S interpreted by me (1pt. min.). @ -None done What testing was considered but not performed or refused? (CT, X-rays, U/S, labs)? Why? @ -None What meds were considered but not given or refused? Why? @ -None Did you discuss the management of the patient with other professionals (professionals i.e. , PA, STRUCTURAL STEEL FITTER, lab, RT, psych nurse, social work nurse, barrel lathe operator outside, teacher, staff weapons officer, showcase trimmer)? Give summary @ -No Was smoking cessation discussed for >3mins.? @ -No Was critical care preformed (if so, how long)? @ -No Were there social determinants of health that impacted care today? How? (Homelessness, low income, unemployed, alcoholism, drug addiction, transportation, low edu. Level, literacy, decrease access to med. care, group home, rehab)? @ -No Was there de-escalation of care discussed even if they declined (Discuss DNR or withdrawal of care, Hospice)? DNR status @ -No What co-morbidities impacted this encounter? (DM, HTN, Smoking, COPD, CAD, Cancer, CVA, ARF, Chemo, Hep., AIDS, mental health diagnosis, sleep apnea, morbid obesity)? @ -None Was patient admitted / discharged? Hospital course, mention meds given and route, prescriptions, significant lab abnormalities, going to OR and other pertinent info. @ -Based on the patient's presentation and physical exam, presents with abdo mahamed pain. We will obtain abdominal laboratory studies. CT imaging also be obtained due to her age and location of the pain. She was in agreement with this plan. Vital signs within acceptable limits. Patient's labs returned relatively unremarkable except for mild leukocytosis of 13 which is likely reactive. Lactic acid within normal limits. Remainder the labs within normal limits. Imaging also returned unremarkable for any acute process. I did discuss the findings with the patient. She was just placed in a room and medications just administered. I will evaluate the patient but she would like to go home afterwards and I believe this is reasonable. I reevaluation come patient is feeling improved. She will be discharged home at this time. She was in agreement this plan.Patient is following up with Dr. Garcia in 2 days. I instructed the patient to follow up with their PCP in the next 1-3 days. . I explained that the patient should return to the emergency department if they experience any worsening symptoms. Strict return precautions were discussed with the patient. The patient expressed understanding of these instructions. I answered all questions that the patient had. The patient was discharged home in good condition with their prescriptions and follow up information. Undiagnosed new problem with uncertain prognosis? @ -No Drug Therapy requiring intensive monitoring for toxicity (Heparin, Nitro, Insulin, Cardizem)? @ -No Were any procedures done? @ -No Diagnosis/symptom? @ -Abdominal pain of unknown etiology Acute, or Chronic, or Acute on Chronic? @ -Acute Uncomplicated (without systemic symptoms) or Complicated (systemic symptoms)? @ -Uncomplicated Side effects of treatment? @ -No Exacerbation, Progression, or Severe Exacerbation? @ -No Poses a threat to life or bodily function? How? (Chest pain, [place], [place], pneumonia, PE, COPD, DKA, ARF, appy, cholecystitis, CVA, Diverticulitis, Homicidal, Suicidal, threat to staff... and all critical care pts) @ -No (Frank Rodriguez) - Lab Data Lab Results 01/17/23 01/17/23 01/17/23 Range/Units 12:06 12:06 12:06 WBC 13.4 H (3.8-10.6) k/uL RBC 4.87 (3.80-5.40) m/uL Hgb 15.2 (11.4-16.0) gm/dL Hct 47.4 H (34.0-46.0) % MCV 97.4 (80.0-100.0) fL MCH 31.2 (25.0-35.0) pg MCHC 32.1 (31.0-37.0) g/dL RDW 13.6 (11.5-15.5) % Plt Count 275 (150-450) k/uL MPV 7.9 Neutrophils % 74 % Lymphocytes % 11 % Monocytes % 12 % Eosinophils % 0 % Basophils % 0 % Neutrophils # 9.9 H (1.3-7.7) k/uL Lymphocytes # 1.5 (1.0-4.8) k/uL Monocytes # 1.6 H (0-1.0) k/uL Eosinophils # 0.0 (0-0.7) k/uL Basophils # 0.0 (0-0.2) k/uL PT 10.1 (9.0-12.0) sec INR 0.9 (<1.2) APTT 24.2 (22.0-30.0) sec Sodium 134 L (137-145) mmol/L Potassium 4.6 (3.5-5.1) mmol/L Chloride 98 (98-107) mmol/L Carbon Dioxide 29 (22-30) mmol/L Anion Gap 7 mmol/L BUN 15 (7-17) mg/dL Creatinine 0.59 (0.52-1.04) mg/dL Est GFR (CKD-EPI)AfAm >90 (>60 ml/min/1.73 sqM) Est GFR (CKD-EPI)NonAf 88 (>60 ml/min/1.73 sqM) Glucose 145 H (74-99) mg/dL Plasma Lactic Acid Alfie (0.7-2.0) mmol/L Calcium 9.0 (8.4-10.2) mg/dL Total Bilirubin 1.1 (0.2-1.3) mg/dL AST 24 (14-36) U/L ALT 11 (4-34) U/L Alkaline Phosphatase 122 (38-126) U/L Total Protein 6.5 (6.3-8.2) g/dL Albumin 3.4 L (3.5-5.0) g/dL Amylase 36 (30-110) U/L Lipase 25 (23-300) U/L Urine Color Urine Appearance (Clear) Urine pH (5.0-8.0) Ur Specific [place] (1.001-1.035) Urine Protein (Negative) Urine Glucose (UA) (Negative) Urine Ketones (Negative) Urine Blood (Negative) Urine Nitrite (Negative) Urine Bilirubin (Negative) Urine Urobilinogen (<2.0) mg/dL Ur Leukocyte Esterase (Negative) 01/17/23 01/17/23 Range/Units 14:23 15:00 WBC (3.8-10.6) k/uL RBC (3.80-5.40) m/uL Hgb (11.4-16.0) gm/dL Hct (34.0-46.0) % MCV (80.0-100.0) fL MCH (25.0-35.0) pg MCHC (31.0-37.0) g/dL RDW (11.5-15.5) % Plt Count (150-450) k/uL MPV Neutrophils % % Lymphocytes % % Monocytes % % Eosinophils % % Basophils % % Neutrophils # (1.3-7.7) k/uL Lymphocytes # (1.0-4.8) k/uL Monocytes # (0-1.0) k/uL Eosinophils # (0-0.7) k/uL Basophils # (0-0.2) k/uL PT (9.0-12.0) sec INR (<1.2) APTT (22.0-30.0) sec Sodium (137-145) mmol/L Potassium (3.5-5.1) mmol/L Chloride (98-107) mmol/L Carbon Dioxide (22-30) mmol/L Anion Gap mmol/L BUN (7-17) mg/dL Creatinine (0.52-1.04) mg/dL Est GFR (CKD-EPI)AfAm (>60 ml/min/1.73 sqM) Est GFR (CKD-EPI)NonAf (>60 ml/min/1.73 sqM) Glucose (74-99) mg/dL Plasma Lactic Acid Aflie 1.1 (0.7-2.0) mmol/L Calcium (8.4-10.2) mg/dL Total Bilirubin (0.2-1.3) mg/dL AST (14-36) U/L ALT (4-34) U/L Alkaline Phosphatase (38-126) U/L Total Protein (6.3-8.2) g/dL Albumin (3.5-5.0) g/dL Amylase (30-110) U/L Lipase (23-300) U/L Urine Color Yellow Urine Appearance Clear (Clear) Urine pH 6.0 (5.0-8.0) Ur Specific [place] 1.030 (1.001-1.035) Urine Protein Trace H (Negative) Urine Glucose (UA) Negative (Negative) Urine Ketones Trace H (Negative) Urine Blood Negative (Negative) Urine Nitrite Negative (Negative) Urine Bilirubin Negative (Negative) Urine Urobilinogen 2.0 (<2.0) mg/dL Ur Leukocyte Esterase Negative (Negative) - EKG Data EKG Comments: 12-lead Electrocardiogram Interpretation Note EKG was reviewed and interpreted by myself. 12-lead ECG performed at 1335 is interpreted by me as revealing normal sinus rhythm at a rate of 83 beats per minute. Earth is normal. OH intervals 116 ms, QRS duration is 82 ms, QTc is 398 ms.. There were no ST or T wave abnormalities to suggest myocardial ischemia or injury. R wave progression across the precordium was satisfactory. By my interpretation this EKG is non-diagnostic for acute ischemia. (Frank Rodriguez) Disposition <Gagan Sepulveda - Last Filed: 01/17/23 10:51> Is patient prescribed a controlled substance at d/c from ED?: No Time of Disposition: 16:19 <Frank Rodriguez - Last Filed: 01/17/23 16:33> Clinical Impression: Abdominal pain of unknown etiology Disposition: HOME SELF-CARE Condition: Good Instructions (If sedation given, give patient instructions): Abdominal Pain (ED) Referrals: Enmanuel Fernández MD [Primary Care Provider] - 1-2 days
[2023-01-17 12:40] LABS: Basophils % (A) 0 %; Eosinophils % (A) 0 %; HCT 47.4 % (34.0-46.0); HGB 15.2 gm/dL (11.4-16.0); INR 0.9 (<1.2); Lymphocytes # (A) 1.5 k/uL (1.0-4.8); Lymphocytes % (A) 11 %; MCH 31.2 pg (25.0-35.0); MCHC 32.1 g/dL (31.0-37.0); MCV 97.4 fL (80.0-100.0); Mean Platelet Volume 7.9; Monocytes # (A) 1.6 k/uL (0-1.0); Monocytes % (A) 12 %; Neutrophils # (A) 9.9 k/uL (1.3-7.7); Neutrophils % (A) 74 %; Partial Thromboplastin Time 24.2 sec (22.0-30.0); Platelet Count 275 k/uL (150-450); Prothrombin Time 10.1 sec (9.0-12.0); RBC 4.87 m/uL (3.80-5.40); RDW 13.6 % (11.5-15.5); WBC 13.4 k/uL (3.8-10.6)
[2023-01-17 12:58] LABS: ALT 11 U/L (4-34); AST 24 U/L (14-36); African American GFR (CKD) >90 (>60 ml/min/1.73 sqM); Albumin 3.4 g/dL (3.5-5.0); Alkaline Phosphatase 122 U/L (38-126); Amylase 36 U/L (30-110); Anion Gap 7 mmol/L; Blood Urea Nitrogen 15 mg/dL (7-17); Carbon Dioxide 29 mmol/L (22-30); Chloride 98 mmol/L (98-107); Glucose 145 mg/dL (74-99); Lipase 25 U/L (23-300); Non-African American GFR(CKD) 88 (>60 ml/min/1.73 sqM); Potassium 4.6 mmol/L (3.5-5.1); Sodium 134 mmol/L (137-145); Total Bilirubin 1.1 mg/dL (0.2-1.3); Total Protein 6.5 g/dL (6.3-8.2)
[2023-01-17] MEDS ORDERED: ONDANSETRON 4 MG/2 ML VIAL IVP STA (13:46)
[2023-01-17] MEDS ORDERED: MORPHINE SULFATE 2 MG/ML SYRINGE IVP STA (13:46)
[2023-01-17] MEDS ORDERED: SODIUM CHLORIDE 0.9% 1,000 ML IV STA (13:46)
--- NOTE | 2023-01-17 15:12 | CT ---
EXAMINATION TYPE: CT abdomen pelvis w con CT DLP: 604.2 mGycm, Automated exposure control for dose reduction was used. DATE OF EXAM: 01/17/2023 2:59 PM COMPARISON: CT abdomen pelvis most recent from 12/16/2022 CLINICAL INDICATION:Female, 77 years old with history of abd pain, LLQ, hx of hernia; LLQ abdominal p ain, hx of hernia. TECHNIQUE: Axial CT of the abdomen and pelvis. Sagittal and coronal reformats were created on a [employer] workstation. Contrast used:100ml mL of Isovue 300 with IV Contrast, (none if empty) Oral contrast used: without Oral Contrast (none if empty) FINDINGS: LOWER CHEST: Unremarkable ABDOMEN LIVER: Focal fatty infiltration adjacent to the falciform ligament in segment IVb GALLBLADDER AND BILE DUCTS: Gallbladder hahn are thickened measuring up to 5 mm. There is hyperemic gallbladder mucosa. PANCREAS: Unremarkable. SPLEEN: Unremarkable. ADRENAL GLANDS: Right adrenal nodule measuring up to 2.5 cm and 90 Hounsfield units is stable dating back to 06/30/2014 KIDNEYS AND URETERS: No evidence of hydronephrosis or renal calculus. The ureters are unremarkable. PELVIS BLADDER: Unremarkable REPRODUCTIVE: Unremarkable. ABDOMEN & PELVIS STOMACH AND BOWEL: No evidence of bowel obstruction. Third portion duodenal diverticulum. Few scatter ed colonic diverticula. No evidence for inflammation. PERITONEUM/RETROPERITONEUM: No evidence of pneumoperitoneum or free fluid. VASCULATURE: Severe atherosclerotic calcifications are present near the origin of the celiac axis and extending down to the infrarenal abdominal aorta. This narrows the lumen of the aorta up to 50-70% s eries 201 image 13 The abdominal aorta and its branches. No evidence of aortic aneurysm. MUSCULOSKELETAL: No acute osseous abnormalities LYMPH NODES: No gross evidence for lymphadenopathy. SOFT TISSUE/ABDOMINAL WALL: Fat-containing left inguinal hernia. IMPRESSION: 1. No definitive evidence for acute abdominal process. There is Gallbladder wall thickening with hyp eremic borders. Correlate for right upper quadrant pain. No evidence of fracturing changes around the gallbladder. 2. Prominent small bowel loops with air in the lower abdomen without evidence for obstruction. Corre late for fecal stasis. 3. No evidence for diverticulitis. 4. Large intraluminal calcifications within the aorta at the level of the celiac axis as well as wit hin the more inferior abdominal aorta. This large calcification narrows the lumen of the aorta at [address] 50-70%. 5. Stable probable right adrenal adenoma measuring up to 2.5 cm.
[2023-01-17 15:23] LABS: Appearance,Urine Clear (Clear); Bilirubin,Urine Negative (Negative); Blood,Urine Negative (Negative); Color,Urine Yellow; Glucose,Urine (UA) Negative (Negative); Ketones,Urine Trace (Negative); Leukocyte Esterase,Urine Negative (Negative); Nitrite,Urine Negative (Negative); Protein,Urine Trace (Negative)
[2023-01-18 15:45] VITALS: BP 161/85; PULSE 96; RESP 20; TEMP 97.9
== END 2023-01-17 16:55 | disposition home or self-care (01) ==
LOC: EC 10:38
DX: K82.8 Other specified diseases of gallbladder (principal); I63.9 Cerebral infarction, unspecified; E11.9 Type 2 diabetes mellitus without complications; K21.9 Gastro-esophageal reflux disease without esophagitis; E78.5 Hyperlipidemia, unspecified; I10 Essential (primary) hypertension; Z87.891 Personal history of nicotine dependence; Z79.82 Long term (current) use of aspirin; Z79.84 Long term (current) use of oral hypoglycemic drugs; Z79.899 Other long term (current) drug therapy; Z79.01 Long term (current) use of anticoagulants; Z79.02 Long term (current) use of antithrombotics/antiplatelets; Z86.73 Personal history of transient ischemic attack (TIA), and cerebral infarction without residual deficits
CPT/HCPCS: 36415; 93005; 80053; 82150; 83605; 83690; 85025; 85610; 85730; 81003; 74177; 99285; 96374; 96375; 96361; J2405; J2270; Q9967

== ENCOUNTER → 2024-09-01 | Outpatient (CLI) | payer MEDICARE ==
[~2024-09-01] MED LIST changes: -LACTATED RINGERS 1,000 ML IV SCH; -LIDOCAINE 2% INJ 20 MG/ML (2 ML VIAL) ONE; -PROPOFOL 10 MG/ML 20 ML VIAL IV ONE; +SODIUM CHLORIDE 0.9% 250 ML in EMPTY BAG 1 BAG IV PRN
[2024-09-01 13:25] VITALS: BP 172/67; PULSE 81; RESP 16; TEMP 98.2
[2024-09-01] MEDS: SODIUM CHLORIDE 0.9% 500 ML 500 ML in EMPTY BAG 1 BAG IV PRN (13:25)
[2024-09-01] MEDS: ZOLEDRONIC ACID 5 MG in SODIUM CHLORIDE 0.9% 100 ML IV NR (13:26)
== END ==
LOC: PROCWHC3 12:50
PROVIDERS: ATTEND Internal Medicine
DX: M81.0 Age-related osteoporosis without current pathological fracture (principal)
CPT/HCPCS: 96365; J3489